=== PATIENT | male | born 1950 | race African-American/Black ===

== ENCOUNTER 2025-07-24 10:34 | Inpatient (IN) | payer MEDICARE, SELFPAY ==
[2025-07-24] VITALS (28 sets, daily range): BP systolic 108–164; BP diastolic 61–85; PULSE 65–87; RESP 12–35; TEMP 36.8; O2SAT 57–100; BMI 30.5
--- NOTE | 2025-07-24 10:42 | DI.CT.S_ITS ---
PROCEDURE: CT ANGIO HEAD AND NECK INDICATIONS: Altered mental status TECHNIQUE: After the administration of intravenous contrast, 1 mm thick sections acquired from the aortic arch through the [place] [employer]. 3-dimensional bngswrj-ykedokoyt-yvloowclmf (MIP) and/or volume rendering reformats were acquired of the central intracranial vasculature and neck separately. For radiation dose reduction, the following was used: automated exposure control, adjustment of mA and/or kV according to patient size. COMPARISON: [facility], CT, CT HEAD/BRAIN WO CON, 07/24/2025, 11:25. FINDINGS: Image quality: Image quality degraded by patient motion artifact. Cerebral CT Angiogram: Internal carotid arteries: No acute findings. Intracranial ICA are patent with no significant stenosis. No occlusion. No aneurysm. Anterior cerebral arteries: Unremarkable. No significant stenosis. No occlusion. No aneurysm. Middle cerebral arteries: Unremarkable. No significant stenosis. No occlusion. No aneurysm. Posterior cerebral arteries: Unremarkable. No significant stenosis. No occlusion. No aneurysm. Basilar artery: Unremarkable. No significant stenosis. No occlusion. No aneurysm. Vertebral arteries: Unremarkable as visualized. Dural venous sinuses: Unremarkable given phase of enhancement. Other: Arterial phase appearance of the brain parenchyma is unremarkable. Neck CT Angiogram: Internal carotid arteries: Mild soft atherosclerotic plaque in the origins of the bilateral internal carotid arteries which causes mild less than 50% stenosis of the vessels. No significant stenosis. No dissection or occlusion. Common carotid arteries: Unremarkable. No significant stenosis. No dissection or occlusion. External carotid arteries: Unremarkable. No occlusion. Vertebral arteries: Unremarkable. No significant stenosis. No dissection or occlusion. Aortic Arch and Mediastinum: Partially visualized aortic arch unremarkable without evidence of aneurysm. Origins of the great vessels unremarkable. Other: Arterial phase soft tissues of the neck and chest are unremarkable. Spine degenerative disc disease and facet arthropathy. IMPRESSION: No large vessel occlusion, significant vascular stenosis, vascular dissection or aneurysm. Any quantitative measurements of stenosis were performed using NASCET criteria. Dictated by: Madelaine Gutierrez MD, PhD on 07/24/2025 at 11:37 Approved by: Madelaine Gutierrez MD, PhD on 07/24/2025 at 11:42
--- NOTE | 2025-07-24 10:45 | ED.AMS ---
HPI - Altered Mental Status General Chief Complaint: Altered Mental Status Stated Complaint: BLE swelling/AMS t-2 weeks Time Seen by Provider: 07/24/25 10:34 Source: patient and EMS Mode of arrival: EMS History of Present Illness HPI narrative: Patient brought in by ambulance from home. Blood sugar 102. Patient according to has had rapid decline of the past 2 weeks with mental status cognition and mobility. Has had bilateral leg swelling. Has not been up and walking very much. Home health nurse was at the facility/home today. She did provide a quick assessment sheet a patient's cognition unable to draw a clock, awake alert oriented to name and date of only. No fall or injury. Patient denies any pain at this time. There is strong smell odor of urine. Patient denies daily alcohol use. No drug use. He denies any pain at this time. No headache chest pain abdominal pain back pain. Related Data Allergies Allergy/AdvReac Type Severity Reaction Status Date / Time No Known Drug Allergies Allergy Verified 07/24/25 10:42 Review of Systems Review of Systems Narrative: GENERAL: Negative chills, fatigue, malaise, fever, sweats. HEENT: Negative sinus pain, ear pain, sore throat RESPIRATORY: Negative dyspnea, cough CARDIOVASCULAR: Negative chest pain, palpitations GASTROINTESTINAL: Negative vomiting, nausea, abdominal pain : Negative dysuria, frequency, hematuria MUSCULOSKELETAL: Negative muscle or bony pain SKIN: Negative rash, skin lesions NEUROLOGIC: Negative weakness, numbness Psychiatric: Positive confusion, negative auditory or visual hallucinations ROS Unobtainable: All systems reviewed & are unremarkable except as noted in HPI and below Patient History Social History household members: spouse Smoking Status: Never smoker Smoking Status: Never smoker Exam Narrative Exam Narrative: GENERAL: in no distress, not toxic not dyspneic HEAD: Normocephalic. EYES: Pupils equal round ENT: Mucous membranes moist. NECK: Trachea midline. CARDIOVASCULAR: Regular rate and rhythm RESPIRATORY: Clear to auscultation. Breath sounds equal bilaterally. No wheezes, rales, or rhonchi. GASTROINTESTINAL: Abdomen soft, non-tender BACK: No flank tenderness. EXTREMITIES: No gross deformities. NEURO: AOx1. Clear speech SKIN: Warm and dry PSYCH: Not anxious, is cooperative Initial Vital Signs Initial Vital Signs: Vital Signs Temperature 98.2 F 07/24/25 10:42 Pulse Rate 87 07/24/25 10:42 Respiratory Rate 17 07/24/25 10:42 Blood Pressure 137/85 07/24/25 10:42 Pulse Oximetry 96 07/24/25 10:42 Oxygen Delivery Method Room Air 07/24/25 10:42 Course Orders Ordered: Acetaminophen (Acetaminophen 325 Mg Tablet) 650 mg PO Q6H PRN PRN Reason: Fever/Mild Pain (1-3) Al Hydrox/Mg Hydrox/Simethicone (Mag Hydrox/Alum/Simeth 30 Ml Udc) 30 ml PO Q6HR PRN PRN Reason: Dyspepsia Heparin Sodium (Porcine) (Heparin 5,000 Unit/Ml Vial) 5,000 unit SUBCUT BID [facility] Last Admin: 07/24/25 21:23 Dose: 5,000 unit Documented By: STEPHAN Sodium Chloride (Normal Saline 0.9%) 1,000 mls @ 100 mls/hr IV CONT [facility] Last Admin: 07/24/25 21:23 Dose: 100 mls/hr Documented By: STEPHAN Ceftriaxone Sodium 2,000 mg/ (Sodium Chloride) 100 mls @ 200 mls/hr IV Q24H [facility] Last Infusion: 07/24/25 22:33 Dose: Infused Documented By: Admin: 07/24/25 21:23 Dose: 200 mls/hr Documented By: STEPHAN Vancomycin HCl (Vancomycin) 1,000 mg in 200 mls @ 200 mls/hr IV Q12H [facility] Magnesium Hydroxide (Magnesium Hydroxide 30 Ml Udc) 30 ml PO DAILY PRN PRN Reason: Constipation Naloxone HCl (Naloxone 0.4 Mg/Ml Vial) 0.2 mg IV Q2MIN PRN PRN Reason: Opiate Reversal Ondansetron HCl (Ondansetron 4 Mg/2 Ml Inj) 4 mg IV Q8HR PRN PRN Reason: Nausea And Vomiting Sennosides (Sennosides 8.6 Mg Tablet) 17.2 mg PO BEDTIME [facility] Vancomycin HCl (Vancomycin Per Pharmacy) 1 request MISC NOW PRN PRN Reason: Infected sacral wounds Vancomycin HCl (Vancomycin Trough) 1 request [facility] [place] [address] [facility] Stop: 07/26/25 09:31 Discontinued Medications Sodium Chloride (Normal Saline 0.9%) 1,000 mls @ 1,000 mls/hr IV BOLUS ONE Stop: 07/24/25 11:47 Last Infusion: 07/24/25 17:13 Dose: Infused Documented By: Admin: 07/24/25 11:21 Dose: 1,000 mls/hr Documented By: LILLY Sodium Chloride (Normal Saline 0.9%) 1,000 mls @ 1,000 mls/hr IV BOLUS ONE Stop: 07/24/25 15:04 Last Infusion: 07/24/25 20:20 Dose: Infused Documented By: Admin: 07/24/25 18:13 Dose: 1,000 mls/hr Documented By: LILLY Vancomycin HCl/Dextrose (Vancomycin) 1,750 mg in 350 mls @ 175 mls/hr IV NOW ONE Stop: 07/24/25 23:14 Last Admin: 07/25/25 07:27 Dose: Not Given Documented By: LAUREN Vancomycin HCl/Dextrose (Vancomycin) 1,750 mg in 350 mls @ 175 mls/hr IV NOW ONE Stop: 07/25/25 00:14 Last Infusion: 07/25/25 01:04 Dose: Infused Documented By: Admin: 07/24/25 22:33 Dose: 175 mls/hr Documented By: STEPHAN Vital Signs Vital signs: Vital Signs - 8 hr 07/24/25 10:42 Temperature 98.2 F Pulse Rate 87 Respiratory Rate 17 Blood Pressure 137/85 Pulse Oximetry 96 Oxygen Delivery Method Room Air MDM - Altered Mental Status Lab Data 07/25/25 03:50 07/25/25 06:20 Labs: Lab Results 07/24/25 07/24/25 07/24/25 Range/Units 11:18 13:09 16:25 WBC 5.4 (4.5-11.0) X10^3/uL RBC 3.75 L (4.5-5.9) X10^6/uL Hgb 10.4 L (13.5-17.5) g/dL Hct 31.5 L (41-53) % MCV 84.0 (80-100) fL MCH 27.8 (26-34) PG MCHC 33.1 (30-36) % RDW 16.1 H (11.6-14.8) % Plt Count 282 (150-400) X10^3/uL Neut % (Auto) 41.6 L (50-75) % Lymph % (Auto) 35.4 (25-40) % [place] % (Auto) 14.9 H (3-14) % Eos % (Auto) 5.4 H (2-4) % Baso % (Auto) 2.7 H (0-2) % Neut # (Auto) 2300 (2635-8804) /uL Lymph # (Auto) 1900 (1697-5230) /uL [place] # (Auto) 800 (0-900) /uL Eos # (Auto) 300 (0-450) /uL Baso # (Auto) 100 (0-100) /uL PT 11.3 (9.4-12.5) SECONDS INR 1.0 (0.9-1.3) APTT 32 (25.1-36.5) SECONDS Sodium 136 L (137-145) mmol/L Potassium 4.9 (3.4-5.1) mmol/L Chloride 104 (98-107) mmol/L Carbon Dioxide 24 (22-32) mmol/L BUN 20 (9-20) mg/dL Creatinine 1.02 (0.66-1.25) mg/dL Estimated GFR > 60 (>60) mL/min BUN/Creatinine Ratio 19.6 (6-22) Glucose 104 H (70-99) mg/dL Lactate 2.4 H 1.7 (0.7-2.1) mmol/L Calcium 9.5 (8.4-10.2) mg/dL Total Bilirubin 0.4 (0.2-1.3) mg/dL AST 31 (17-59) IU/L ALT 15 (<50) IU/L Alkaline Phosphatase 58 (38-126) U/L Ammonia 9 (9-30) umol/L Total Creatine Kinase 266 H (55-170) U/L Troponin I < 0.012 (0.01-0.034) ng/mL Total Protein 7.6 (6.3-8.2) g/dL Albumin 4.0 (3.5-5.0) g/dL Globulin 3.6 (1.7-4.1) g/dL Albumin/Globulin Ratio 1.1 (1.0-2.8) Procalcitonin 0.046 (<0.5) ng/mL TSH 55.4 H (0.47-4.68) uIU/mL Urine Color Yellow Urine Appearance Clear Urine pH 6.0 (4.5-8.0) Ur Specific [place] 1.015 (1.000-1.035) Urine Protein Negative (Negative) Urine Glucose (UA) Negative (Negative) g/dL Urine Ketones Negative (NEGATIVE) Urine Occult Blood Negative (Negative) Urine Nitrate Negative (Negative) Urine Bilirubin Negative (NEGATIVE) Urine Urobilinogen 1.0 (0.2) E.U./dL Ur Leukocyte Esterase Negative (NEGATIVE) Urine RBC None seen (0-5/HPF) Urine WBC None seen (0-5/HPF) Ur Squamous Epith Cells 0-1 /hpf (0-5/HPF) Urine Bacteria None seen (None) Ur Culture Indicated? Cult not indicated Vol Urine Centrifuged 10ml (spun) Salicylates < 1.0 (<20) mg/dL U Opiates 300ng/mL cut Negative (Negative) Ur Oxycodone Screen Negative (Negative) Urine Methadone Screen Negative (Negative) Acetaminophen < 10 (10-30) ug/mL Ur Barbiturates Screen Negative (Negative) U Tricyclic Antidepress Negative (Negative) Ur Phencyclidine Scrn Negative (Negative) Ur Amphetamines Screen Negative (Negative) U Methamphetamines Scrn Negative (Negative) Ur MDMA Scrn (Ecstasy) Negative (Negative) U Benzodiazepines Scrn Negative (Negative) Urine Cocaine Screen Negative (Negative) U Marijuana (THC) Screen Positive H (Negative) Urine Specific [place] (Normal) Ethyl Alcohol < 10 (<10) mg/dL Ur Creatinine (Normal) 07/24/ Range/Units 16:25 WBC (4.5-11.0) X10^3/uL RBC (4.5-5.9) X10^6/uL Hgb (13.5-17.5) g/dL Hct (41-53) % MCV (80-100) fL MCH (26-34) PG MCHC (30-36) % RDW (11.6-14.8) % Plt Count (150-400) X10^3/uL Neut % (Auto) (50-75) % Lymph % (Auto) (25-40) % [place] % (Auto) (3-14) % Eos % (Auto) (2-4) % Baso % (Auto) (0-2) % Neut # (Auto) (7834-8467) /uL Lymph # (Auto) (3741-4030) /uL [place] # (Auto) (0-900) /uL Eos # (Auto) (0-450) /uL Baso # (Auto) (0-100) /uL PT (9.4-12.5) SECONDS INR (0.9-1.3) APTT (25.1-36.5) SECONDS Sodium (137-145) mmol/L Potassium (3.4-5.1) mmol/L Chloride (98-107) mmol/L Carbon Dioxide (22-32) mmol/L BUN (9-20) mg/dL Creatinine (0.66-1.25) mg/dL Estimated GFR (>60) mL/min BUN/Creatinine Ratio (6-22) Glucose (70-99) mg/dL Lactate (0.7-2.1) mmol/L Calcium (8.4-10.2) mg/dL Total Bilirubin (0.2-1.3) mg/dL AST (17-59) IU/L ALT (<50) IU/L Alkaline Phosphatase (38-126) U/L Ammonia (9-30) umol/L Total Creatine Kinase (55-170) U/L Troponin I (0.01-0.034) ng/mL Total Protein (6.3-8.2) g/dL Albumin (3.5-5.0) g/dL Globulin (1.7-4.1) g/dL Albumin/Globulin Ratio (1.0-2.8) Procalcitonin (<0.5) ng/mL TSH (0.47-4.68) uIU/mL Urine Color Urine Appearance Urine pH Normal (4.5-8.0) Ur Specific [place] (1.000-1.035) Urine Protein (Negative) Urine Glucose (UA) (Negative) g/dL Urine Ketones (NEGATIVE) Urine Occult Blood (Negative) Urine Nitrate (Negative) Urine Bilirubin (NEGATIVE) Urine Urobilinogen (0.2) E.U./dL Ur Leukocyte Esterase (NEGATIVE) Urine RBC (0-5/HPF) Urine WBC (0-5/HPF) Ur Squamous Epith Cells (0-5/HPF) Urine Bacteria (None) Ur Culture Indicated? Vol Urine Centrifuged Salicylates (<20) mg/dL U Opiates 300ng/mL cut (Negative) Ur Oxycodone Screen (Negative) Urine Methadone Screen (Negative) Acetaminophen (10-30) ug/mL Ur Barbiturates Screen (Negative) U Tricyclic Antidepress (Negative) Ur Phencyclidine Scrn (Negative) Ur Amphetamines Screen (Negative) U Methamphetamines Scrn (Negative) Ur MDMA Scrn (Ecstasy) (Negative) U Benzodiazepines Scrn (Negative) Urine Cocaine Screen (Negative) U Marijuana (THC) Screen (Negative) Urine Specific [place] Normal (Normal) Ethyl Alcohol (<10) mg/dL Ur Creatinine Normal (Normal) Imaging Data MRI brain: Radiologist's Impression: [address] [address] Magnetic Resonance Report Signed Patient: Bebeto Orona MR#: [id number] : 1950 Acct:[id number] Age/Sex: 74 / M Date of Service: 07/24/25 Loc: ED Accession Number: [id number] Procedure: MR head/brain wo con Ordering Provider: Zacarias Hunt MD PROCEDURE: MR HEAD/BRAIN WO CON INDICATIONS: Altered mental status/possible stroke TECHNIQUE: Non-contrast axial T1 spin echo, axial T2 fast spin echo, sagittal and axial FLAIR, coronal T2 fast spin echo, axial gradient echo, axial diffusion and ADC through the brain. COMPARISON: None. FINDINGS: Image quality: Excellent. CSF spaces: Ventricles appear symmetric in size and shape. Basal cisterns are patent. No extra-axial fluid collections. Brain: No intracranial bleeds or mass effects. There is cerebral volume loss for age. There are periventricular and deep white matter chronic small vessel ischemic changes. Brainstem appears normal. Diffusion-weighted images show no acute infarct. No chronic ischemic insults. Normal intravascular flow voids are present. Skull and face: Calvarial bone marrow is normal in signal. Orbits are normal. Sinuses: Complete opacification of the right maxillary sinus with widening of the ostiomeatal complex and extension into the sinus cavity. Complete opacification of the right sphenoid sinus. The mastoid sinuses are clear. IMPRESSION: No acute or subacute infarct. No acute intracranial abnormalities. Age-related global volume loss and moderate chronic microvascular ischemic changes. Again seen complete opacification of the right maxillary and sphenoid sinus with an expansile process into the right nasal cavity, non urgent ENT consultation is recommended. Dictated by: Junior Gutierrez M.D. on 07/24/2025 at 15:09 Approved by: Junior Gutierrez M.D. on 07/24/2025 at 15:14 CT scan - head: Radiologist's Impression: [address] [address] [address] Scan Report Signed Patient: Bebeto Orona MR#: [id number] : 1950 Acct:[id number] Age/Sex: 74 / M Date of Service: 07/24/25 Loc: ED Accession Number: [id number] Procedure: CT head/brain wo con Ordering Provider: Zacarias Hunt MD PROCEDURE: CT HEAD/BRAIN WO CON INDICATIONS: Altered mental status TECHNIQUE: Noncontrast 4.5 mm thick angled axial sections acquired from the foramen magnum to the vertex, with coronal and sagittal reformats. For radiation dose reduction, the following was used: automated exposure control, adjustment of mA and/or kV according to patient size. COMPARISON: None. FINDINGS: Image quality: Diagnostic. CSF spaces: Basal cisterns are patent. No extra-axial fluid collections. The ventricles are symmetric in size and shape. Brain: No intracranial bleeds or mass effect. There is cerebral volume loss, with resultant ventricular and sulcal prominence. There are moderate periventricular and deep white matter chronic small vessel ischemic changes. There is intracranial internal carotid artery atherosclerosis. Skull and face: Calvarium and visualized facial bones appear intact, without suspicious lesions. Sinuses: Complete opacification of the right maxillary sinus with extension of soft tissue beyond the confines of the medial wall of the sinus into the right nasal fossa. Complete opacification of the right sphenoid sinus and partial right ethmoid opacification. IMPRESSION: No acute intracranial pathology. Complete opacification of the right maxillary sinus and right sphenoid sinus. Expansile process into the right nasal passage. Consider chronic sinus disease. Consider mucocele. Maxillary sinus neoplasm not excluded. Recommend nonemergent ENT consultation. Dictated by: Miguel Calixto M.D. on 07/24/2025 at 12:10 Approved by: Miguel Calixto M.D. on 07/24/2025 at 12:13 CTA - brain/neck: Radiologist's Impression: [address] [address] [address] Scan Report Signed Patient: Bebeto Orona MR#: [id number] : 1950 Acct:[id number] Age/Sex: 74 / M Date of Service: 07/24/25 Loc: ED Accession Number: [id number] Procedure: CT angio head and neck Ordering Provider: Zacarias Hunt MD PROCEDURE: CT ANGIO HEAD AND NECK INDICATIONS: Altered mental status TECHNIQUE: After the administration of intravenous contrast, 1 mm thick sections acquired from the aortic arch through the [place] [employer]. 3-dimensional meydkae-thhnfzpqe-yawnqgkobj (MIP) and/or volume rendering reformats were acquired of the central intracranial vasculature and neck separately. For radiation dose reduction, the following was used: automated exposure control, adjustment of mA and/or kV according to patient size. COMPARISON: [facility], CT, CT HEAD/BRAIN WO CON, 07/24/2025, 11:25. FINDINGS: Image quality: Image quality degraded by patient motion artifact. Cerebral CT Angiogram: Internal carotid arteries: No acute findings. Intracranial ICA are patent with no significant stenosis. No occlusion. No aneurysm. Anterior cerebral arteries: Unremarkable. No significant stenosis. No occlusion. No aneurysm. Middle cerebral arteries: Unremarkable. No significant stenosis. No occlusion. No aneurysm. Posterior cerebral arteries: Unremarkable. No significant stenosis. No occlusion. No aneurysm. Basilar artery: Unremarkable. No significant stenosis. No occlusion. No aneurysm. Vertebral arteries: Unremarkable as visualized. Dural venous sinuses: Unremarkable given phase of enhancement. Other: Arterial phase appearance of the brain parenchyma is unremarkable. Neck CT Angiogram: Internal carotid arteries: Mild soft atherosclerotic plaque in the origins of the bilateral internal carotid arteries which causes mild less than 50% stenosis of the vessels. No significant stenosis. No dissection or occlusion. Common carotid arteries: Unremarkable. No significant stenosis. No dissection or occlusion. External carotid arteries: Unremarkable. No occlusion. Vertebral arteries: Unremarkable. No significant stenosis. No dissection or occlusion. Aortic Arch and Mediastinum: Partially visualized aortic arch unremarkable without evidence of aneurysm. Origins of the great vessels unremarkable. Other: Arterial phase soft tissues of the neck and chest are unremarkable. Spine degenerative disc disease and facet arthropathy. IMPRESSION: No large vessel occlusion, significant vascular stenosis, vascular dissection or aneurysm. Any quantitative measurements of stenosis were performed using NASCET criteria. Dictated by: Madelaine Gutierrez MD, PhD on 07/24/2025 at 11:37 Approved by: Madelaine Gutierrez MD, PhD on 07/24/2025 at 11:42 US - DVT: Radiologist's Impression: [address] [address] Ultrasound Report Signed Patient: Bebeto Orona MR#: [id number] : 1950 Acct:[id number] Age/Sex: 74 / M Date of Service: 07/24/25 Loc: ED Accession Number: [id number] Procedure: US periph venous low extrem bi Ordering Provider: Zacarias Hunt MD PROCEDURE: US PERIPH VENOUS LOW EXTREM BI INDICATIONS: Leg swelling TECHNIQUE: Real-time imaging, as well as color and pulse Doppler interrogation, were performed of the deep veins of both legs from the inguinal ligament to the popliteal fossa, with documentation of the visualized calf veins. COMPARISON: None. FINDINGS: Right: The common femoral, femoral, popliteal, and the visualized calf veins are normally compressible, and free of intraluminal thrombus. Color and pulse Doppler demonstrate normal phasic intravascular flow. There is normal augmentation response to distal compression maneuver. Left: The common femoral, femoral, popliteal, and the visualized calf veins are normally compressible, and free of intraluminal thrombus. Color and pulse Doppler demonstrate normal phasic intravascular flow. There is normal augmentation response to distal compression maneuver. Peroneal veins are not well seen bilaterally due to edema. IMPRESSION: No findings of deep venous thrombosis in either lower extremity. Dictated by: Junior Gutierrez M.D. on 07/24/2025 at 13:21 Approved by: Junior Gutierrez M.D. on 07/24/2025 at 13:23 Chest x-ray: Radiologist's Impression: [address] [address] XRay Report Signed Patient: Bebeto Orona MR#: [id number] : 1950 Acct:[id number] Age/Sex: 74 / M Date of Service: 07/24/25 Loc: ED Accession Number: [id number] Procedure: XR chest 1V Ordering Provider: Zacarias Hunt MD PROCEDURE: XR CHEST 1V INDICATIONS: Cough TECHNIQUE: One view of the chest was acquired. COMPARISON: None. FINDINGS: Surgical changes and devices: None. Lungs and pleura: Lungs are clear. No pleural effusions or pneumothorax. Mediastinum: Mediastinal contours appear normal. Heart size is normal. Bones and chest wall: No suspicious bony lesions. Overlying soft tissues appear unremarkable. IMPRESSION: No acute cardiopulmonary abnormality is seen. Dictated by: Minh Thomason M.D. on 07/24/2025 at 11:24 Approved by: Minh Thomason M.D. on 07/24/2025 at 11:24 [facility] Narrative Medical decision making narrative: Patient brought in by ambulance from home. Blood sugar 102. Patient according to has had rapid decline of the past 2 weeks with mental status cognition and mobility. Has had bilateral leg swelling. Has not been up and walking very much. Home health nurse was at the facility/home today. She did provide a quick assessment sheet a patient's cognition unable to draw a clock, awake alert oriented to name and date of only. No fall or injury. Patient denies any pain at this time. There is strong smell odor of urine. Patient denies daily alcohol use. No drug use. He denies any pain at this time. No headache chest pain abdominal pain back pain MDM After history and exam, CBC CMP drug screen alcohol level urinalysis CT head CT angio head and neck normal saline Differential considered: Includes but not limited to UTI dehydration dependent leg edema due to lack of mobility/walking, stroke TIA failure to thrive, STEMI non-STEMI Medical records reviewed: No recent visit for this complaint Lab Test results independently reviewed as above. Pertinent findings: WBC 5.4 hemoglobin 10.4 INR 1.0 sodium 136 potassium 4.9 BUN 19.6 glucose 104 lactic acid 2.4, drug screen positive marijuana, urinalysis negative nitrite negative leukocyte Independently reviewed EKG normal sinus rhythm rate [address]-elevation or depression Imaging studies independently reviewed: Chest x-ray no acute finding. CT head CT angio head and neck no acute finding, MRI brain no acute finding Consultations: 5:00 p.m.. I spoke with [facility] social security specialist. Physical therapy has seen patient in is a minimum 1-2 person assist. Not safe for home. Patient will need OT therapy as well. 5:55 p.m.. I spoke with hospitalist, dr flores, will admit Re-evaluations: 5:45 p.m.. Updated patient and results and they do agree admission as he is not safe to go home. Discussion: IV contrast used for CT imaging. Appropriate for admission. Patient will require further workup evaluation for altered mental status. Diagnosis: Altered mental status Discharge Plan Departure Patient Disposition: Admitted as Observation Clinical Impression: Altered mental status Qualifiers: Altered mental status type: unspecified Qualified Code(s): R41.82 - Altered mental status, unspecified Admit Date/Time: 07/24/25 17:51 Admit Provider: Gian Flores
[2025-07-24] MEDS: SODIUM CHLORIDE 0.9% 1,000 ML 1000 ML IV ×2 (11:21→18:13)
[2025-07-24 11:27] LABS: Add Manual Diff / Slide Review NO; Hematocrit 31.5 % (41-53); Hemoglobin 10.4 g/dL (13.5-17.5); Lymphocytes Absolute Auto 1900 /uL (1100-4500); Mean Corpuscular HGB Conc 33.1 % (30-36); Mean Corpuscular Hemoglobin 27.8 PG (26-34); Mean Corpuscular Volume 84.0 fL (80-100); Platelet Count 282 X10^3/uL (150-400)
[2025-07-24 11:38] LABS: INR 1.0 (0.9-1.3); Prothrombin Time 11.3 SECONDS (9.4-12.5)
[2025-07-24 11:41] LABS: PTT Partial Thromboplastin Tim 32 SECONDS (25.1-36.5)
[2025-07-24 11:42] LABS: Acetaminophen < 10 ug/mL (10-30); Creatine Kinase 266 U/L (55-170); Ethanol (ETOH) < 10 mg/dL (<10); Salicylate < 1.0 mg/dL (<20)
[2025-07-24 11:43] LABS: Alanine Aminotransferase 15 IU/L (<50); Albumin 4.0 g/dL (3.5-5.0); Albumin Globulin Ratio 1.1 (1.0-2.8); Alkaline Phosphatase 58 U/L (38-126); Ammonia (NH3) 9 umol/L (9-30); Blood Urea Nitrogen 20 mg/dL (9-20); Calcium 9.5 mg/dL (8.4-10.2); Carbon Dioxide 24 mmol/L (22-32); Chloride 104 mmol/L (98-107); Estimated Glomerular Filt Rate > 60 mL/min (>60); Globulin 3.6 g/dL (1.7-4.1); Glucose 104 mg/dL (70-99); HEMOLYSIS < 15 (0-50); Lactate (Lactic Acid) 2.4 mmol/L (0.7-2.1); Potassium 4.9 mmol/L (3.4-5.1); Sodium 136 mmol/L (137-145); Total Protein 7.6 g/dL (6.3-8.2)
[2025-07-24 11:56] LABS: Troponin I < 0.012 ng/mL (0.01-0.034)
[2025-07-24 11:58] LABS: Procalcitonin 0.046 ng/mL (<0.5)
--- NOTE | 2025-07-24 11:59 | EKG_ITS ---
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
--- NOTE | 2025-07-24 12:01 | DI.US.S_ITS ---
PROCEDURE: US PERIPH VENOUS LOW EXTREM BI INDICATIONS: Leg swelling TECHNIQUE: Real-time imaging, as well as color and pulse Doppler interrogation, were performed of the deep veins of both legs from the inguinal ligament to the popliteal fossa, with documentation of the visualized calf veins. COMPARISON: None. FINDINGS: Right: The common femoral, femoral, popliteal, and the visualized calf veins are normally compressible, and free of intraluminal thrombus. Color and pulse Doppler demonstrate normal phasic intravascular flow. There is normal augmentation response to distal compression maneuver. Left: The common femoral, femoral, popliteal, and the visualized calf veins are normally compressible, and free of intraluminal thrombus. Color and pulse Doppler demonstrate normal phasic intravascular flow. There is normal augmentation response to distal compression maneuver. Peroneal veins are not well seen bilaterally due to edema. IMPRESSION: No findings of deep venous thrombosis in either lower extremity. Dictated by: Junior Gutierrez M.D. on 07/24/2025 at 13:21 Approved by: Junior Gutierrez M.D. on 07/24/2025 at 13:23
--- NOTE | 2025-07-24 12:02 | DI.MRI.S_ITS ---
PROCEDURE: MR HEAD/BRAIN WO CON INDICATIONS: Altered mental status/possible stroke TECHNIQUE: Non-contrast axial T1 spin echo, axial T2 fast spin echo, sagittal and axial FLAIR, coronal T2 fast spin echo, axial gradient echo, axial diffusion and ADC through the brain. COMPARISON: None. FINDINGS: Image quality: Excellent. CSF spaces: Ventricles appear symmetric in size and shape. Basal cisterns are patent. No extra-axial fluid collections. Brain: No intracranial bleeds or mass effects. There is cerebral volume loss for age. There are periventricular and deep white matter chronic small vessel ischemic changes. Brainstem appears normal. Diffusion-weighted images show no acute infarct. No chronic ischemic insults. Normal intravascular flow voids are present. Skull and face: Calvarial bone marrow is normal in signal. Orbits are normal. Sinuses: Complete opacification of the right maxillary sinus with widening of the ostiomeatal complex and extension into the sinus cavity. Complete opacification of the right sphenoid sinus. The mastoid sinuses are clear. IMPRESSION: No acute or subacute infarct. No acute intracranial abnormalities. Age-related global volume loss and moderate chronic microvascular ischemic changes. Again seen complete opacification of the right maxillary and sphenoid sinus with an expansile process into the right nasal cavity, non urgent ENT consultation is recommended. Dictated by: Junior Gutierrez M.D. on 07/24/2025 at 15:09 Approved by: Junior Gutierrez M.D. on 07/24/2025 at 15:14
[2025-07-24 12:44] LABS: Thyroid Stimulating Hormone 55.4 uIU/mL (0.47-4.68)
[2025-07-24 13:00] LABS: Reflexed Lactate in 2 Hours Y
[2025-07-24 13:27] LABS: Lactate 2HR (Lactic Acid Rflx) 1.7 mmol/L (0.7-2.1)
--- NOTE | 2025-07-24 15:05 | PT.IIE ---
Physical Therapy Inpatient Evaluation/Re-Eval M1 PT/OT-IP Prior Functional Status Start: 07/24/25 16:35 Freq: Status: Active Protocol: Document 07/24/25 15:05 AB (Rec: 07/24/25 16:52 [id number]) Medical Review Prior Functional Status Medical History Yes Reviewed Communication able to make needs known; slow to respond to questions and instructions Mobility and Gait pt stated that he was modified independent with all mobilities and ambulation using a SPC; pt stated that he has not seen a doctor for years spouse stated that pt was modified independent with toileting but has not had a shower for years; stated that pt has not been out of the house for 6 years; able to ambulate inside their RV using a SPC but uses the counters for support when he uses the toilet. pt had 2 falls for the last 4 weeks and last fall was 2 weeks ago and since that fall; pt was not able to ambulate and has been incontinent. Social History Household Members spouse Living Arrangements RV Number of Floors ( One Floor Floors) Number of Stairs To 6 steps B rails to enter Enter/Railing? Home Environment Standard Height Toilet,Walk in Shower Home Equipment Straight Cane,Hand Held Shower M2 PT-IP Current Condition Start: 07/24/25 16:35 Freq: Status: Active Protocol: Document 07/24/25 15:05 AB (Rec: 07/24/25 16:52 [id number]) Physical Therapy Current Condition Current Condition Evaluation Date 07/24/25 Treatment Diagnosis altered mental status; difficulty in walking Onset Date 07/24/25 M3 PT-IP Subjective Start: 07/24/25 16:35 Freq: Status: Active Protocol: Document 07/24/25 15:05 AB (Rec: 07/24/25 16:52 [id number]) Subjective Physical Therapy Visit Type Type Initial Evaluation Visit Start Time 15:05 Visit Stop Time 16:05 Number of CHERRY CUTTER Visits 0 Physical Therapy Visit Comments Patient Comments agreed to do PT Therapy Pain Assessment Pain Present Pain Present Denied Pain M4 PT-IP Mobility and Gait Start: 07/24/25 16:35 Freq: Status: Active Protocol: Document 07/24/25 15:05 AB (Rec: 07/24/25 16:52 [id number]) PT-Bed Mobility Assessment Supine to Sit Supine to Sit Maximum Assistance Sit to Supine Sit to Supine Maximum Assistance,1 Person Assistance,2 Person Assistance PT-Transfer Assessment Sit to and From Stand Sit to and from Maximum Assistance,1 Person Assistance,Use of Upper Stand Extremities Equipment Transfer Assistive Gait Belt,Front Wheeled Walker Device Orthotic/Prosthetic No Devices or Brace: Comments Mobility Comments pt seen in the ED. pt in bed and agreed to do PT. obtained PLOF and home set up. pt's spouse arrived and clarified home set up. pt with decrease memory. BP: 134/82 O2 sat 97% and OK: 94. completed supine to sit max A and max cues. able to sit on EOB CGA. sit to stand max A and max cues. instructed to use FWW for support. pt needing one step cues with all tasks. pt was able to take side steps towards HOB max A and max cues using FWW. pt rested and agreed to ambulate more in room. completed sit to stand max A and ambulated ~ 5 ft in room using FWW max A and max cues. (+) tremors /shakiness on BUE. presents with very unsteady gait with narrow VALENTINE. pt sat back on EOB. completed sit to supine max Ax 1-2 and max cues. positioned pt in bed. call light and table placed next to pt. informed pt and spouse regarding SNF recommendation and both agreed. informed case work aide. Gait Assessment Gait Gait Assistance Maximum Assistance,1 Person Assist Required: Distance (Feet) 5 Able to Maintain Yes Weight Bearing Status During Gait Assistive Devices Assistive Device Gait Belt,Front Wheeled Walker Orthotic/Prosthetic No Devices or Brace: Gait Deviations General Gait Pattern Ataxic,Decreased Stride Length,Decreased Feet Clearance ,Step-to Gait Factors Limiting Gait Function Factors Limiting Decreased Activity Tolerance,Decreased Strength, Gait Function Difficulty Following Directions,Poor Balance,Poor Safety Awareness PT-Balance Assessment Sitting Balance and Reactions Static Sitting Good Balance Ability Dynamic Sitting Fair Balance Ability Standing Balance and Reactions Static Standing Poor Balance Ability Dynamic Standing Poor Balance Ability Device Used FWW M5 PT-IP Objective Assessments Start: 07/24/25 16:35 Freq: Status: Active Protocol: Document 07/24/25 15:05 AB (Rec: 07/24/25 16:52 AB [id number]) Orientation Orientation/Cognition Level of Alertness Confusional State Orientation Name,Situation Language Function No Deficits Noted Ability Safety Awareness Decreased Safety Awareness Memory Description Short Term Impaired,Correction Impaired Gross Range of Motion Lower Extremity ROM Assessment Within Functional Limits Strength Lower Extremity Strength Assessment Bilaterally Impaired Hip 3-/5 Knee 3+/5 Muscle Tone Muscle Tone WNL Yes M6 PT-IP Treatment Start: 07/24/25 16:35 Freq: Status: Active Protocol: Document 07/24/25 15:05 AB (Rec: 07/24/25 16:52 AB [id number]) Physical Therapy Treatment Education Education Provided Safety M7 PT-IP Assessment and Plan Start: 07/24/25 16:35 Freq: Status: Active Protocol: Document 07/24/25 15:05 AB (Rec: 07/24/25 16:52 AB [id number]) PT Summary Assessment and Plan Potential Rehabilitation Fair Potential Status of Condition Evolving at Evaluation Summary Impairments Pain,ROM,Strength,Balance,Coordination,Sensation,Tone, Cognition,Bed Mobility,Transfers,Gait,Activity Tolerance Assessment Summary pt seen in the ED. pt is a 74 y/o M who presented to the ED due to altered mental status. pt with 2 falls for the last 4 weeks and has been declining in mobility with the last fall ~ 2 weeks ago and pt unable to ambulate since then per spouse. pt requiring max A x 1 -2 for bed mobility, max A for transfers and ambulation using FWW and max cues with all tasks. pt with decrease cognitive level affecting following directions and safety awareness. pt will benefit from SNF rehab to improve overall strength and function. Goals Bed Mobility Goal Minimal Assistance Transfer Goal Minimal Assistance,Front Wheeled Walker Gait Goal Minimal Assistance,Front Wheel Walker Gait Distance 25 Other Goals improve bed mobility, transfers, ambulation using FWW ~ 100 ft SBA up/down 6 steps B rails SBA Days to Meet Goals 10 Frequency of Treatment Frequency Of Once a Day Treatment Treatment Plan Physical Therapy Bed Mobility Training,Transfer Training,Gait Training, Treatment Plan Therapeutic Exercise,Balance Retraining,Discharge Planning,Hot or Cold Pack,Neuromuscular Re-ed, Coordination Retraining,Manual Therapy Precautions Other Precautions falls Recommendations To Nursing Amount of Assist 2 Person Assist Needed Discharge Recommendations PT Discharge SNF Rehab Recommendations Transportation Needs Wheelchair/Cabulance at Discharge - PT assist 1
--- NOTE | 2025-07-24 16:23 | CM.IDA ---
Addendum entered by Deyanira Holland 07/24/25 17:06: PAIL BAILER provides patient's spouse with Medicare choice list, lists of caregivers, senior resource guide, transportation resources, DME list and caregiver support resources. Deyanira Holland, [facility] Original Note: Initial DCP Assessment Note/ ED PAIL BAILER Note Patient is 74 y/o male who presents to ED via EMS due to concern for increase in weakness, AMS, increased confusion, bilateral leg swelling, recent GLFs and decline in ambulation in the last two weeks. Patient does not have a PCP, PAIL BAILER scheduled appt for patient with Dr. Chen for 07/31/25 at 1:30pm, patient may not be able to attend appt due to unfolding disposition and plan of care. Patient has [facility] insurance. PAIL BAILER enters room to meet with patient, present in room is patient's spouse. Patient presents as A/O to self, person and date. Patient resides with spouse in [place] in an , it is reported that they have family that reside in [place]. Patient's spouse provides most of the answers to questions during conversation. It is reported that patient has not left their RV in 6 years, it is reported that patient has had two falls in the last month or so and spouse has noticed decline in patient's ability to ambulate and increase in confusion in the last two weeks. It is reported that patient has not showered in two months. Patient's spouse endorses that she manages most of the ADLs regarding cooking cleaning and ensuring that patient is fed. Patient endorses ADLs are a slow process for him, patient's spouse endorses concern for incontinence in recent weeks for patient. At baseline patient could ambulate within the RV using the sides of the RV but he has been unable to do so in the last two weeks. Patient has FWW at home. It is reported that a [facility] contracted through patient's insurance saw patient yesterday for a home assessment and reported concerns for patient's bilateral leg swelling and AMS and recommended patient come to ED. There is concern that patient will not be able to get into a vehicle if needed at this time to get to a PCP appt. PAIL BAILER discusses other transportation options such as BLS and cabulance. PAIL BAILER discusses patient with Onsebastian at PCP clinic regarding patient's need for PCP appt and appt is scheduled, if disposition changes patient will have f/u appt at later date with Dr. Chen. PAIL BAILER discusses HH vs. SNF rehab. Patient's spouse endorses preference for SNF rehab with preference to remain local. PT evaluates patient and recommends SNF rehab, it is reported that patient is a 1-2 person assist, patient presents with some safety concerns following directions and will slow response time. PAIL BAILER contacts [facility] rehab regarding patient and leaves . PAIL BAILER to fax clinicals for review. APS report submitted due to concern for self neglect: Online Report Confirmation Number: [id number]. Plan: Awaiting urine sample results at this time. Patient is pending admission, patient would benefit from further PT eval and OT eval for SLUMS score. [facility] SNF rehab reviewing pt. JANAY Sanford Discharge Planning/Care Management CM Discharge Assessment Start: 07/24/25 16:15 Freq: Status: Active Protocol: Document 07/24/25 16:16 LN (Rec: 07/24/25 16:22 LN [id number]) Discharge Planning Assessment Assigned Discharge JANAY [address] [employer] Insurance [facility] Advance Directives? No Advance Directives No on File History Provided By Patient,Significant Other,Medical Record Has Patient been No admitted in last 30 days? Prior Living RV Arrangements Household Members spouse Type of Relies on Others transportation used prior to admit Comment Patient has not left his RV in 6 years Independent with ADL No 's Is patient alert and No oriented? Needs Assistance Bathing,Grooming,Meal Prep,Toileting,Managing With Medications,Home Chores / Shopping DME Already Rented / FWW / Walker Owned Patient/Family Fdc Facility Preference Comment Preference for SNF rehab, primary choice is [facility], secondary choices are SNF rehabs in [facility]. SNF/HH Preference [facility] Has Agency SNF been Yes contacted
[2025-07-24 17:03] LABS: Appearance Urine UA CLEAR; Bilirubin Urine UA NEGATIVE (NEGATIVE); Color Urine UA YELLOW; Glucose Urine UA NEGATIVE (Negative); Ketones Urine UA NEGATIVE (NEGATIVE); Leukocyte Esterase Urine UA NEGATIVE (NEGATIVE); Nitrite Urine UA NEGATIVE (Negative); Occult Blood Urine UA NEGATIVE (Negative); Protein Urine UA NEGATIVE (Negative); Specific Gravity Urine UA 1.015 (1.000-1.035); Urobilinogen Urine UA 1.0 E.U./dL (0.2); pH Urine UA 6.0 (4.5-8.0)
[2025-07-24 17:13] LABS: Ur Creatinine Normal (Normal); Ur Specific Gravity Normal (Normal); Urine MDMA Negative (Negative); Urine Methamphetamines Negative (Negative); Urine THC Positive (Negative); Urine Tricyclic Antidepressant Negative (Negative); Urine pH Normal (Normal)
[2025-07-24 17:15] LABS: Culture Indicated Urine Cult Not Indicated
--- NOTE | 2025-07-24 17:27 | PC.NURSE ---
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 a/o x2-3 in ED
--- NOTE | 2025-07-24 20:57 | P.HP_ITS ---
History of Present Illness History of Present Illness Date Patient Seen: 07/24/25 Chief complaint: BLE swelling/AMS t-2 weeks Narrative: Chief complaint: Progressive confusion encephalopathy extensive pressure wounds History of present illness: 07/24: Patient brought in by ambulance from home. Blood sugar 102. Patient according to has had rapid decline of the past 2 weeks with mental status cognition and mobility. Has had bilateral leg swelling. Has not been up and walking very much. Home health nurse was at the facility/home today. She did provide a quick assessment sheet a patient's cognition unable to draw a clock, awake alert oriented to name and date of only. Patient is unable to give a history Findings in the emergency department significant for extensive peritoneal stages 2 and 3 very confused acute kidney injury on BUN creatinine tox screen positive for marijuana Review of systems: Patient incapable of participating due to cognitive limitation Physical exam: Very poorly kempt elderly male but pleasant HEENT unremarkable except poor dentition Heart rate and rhythm regular Lungs clear Abdomen nontender Perineum extensive decubitus stage I 2 and 3 in multiple areas and skin folds patient is dark pigmented which may make erythema difficult to recognize Extremities 3+ lower extremity edema Assessment and plan: Failure to thrive and self-care deficit with progressive encephalopathy suspect early sepsis from sacral wounds * Admit for inpatient care * Wound care * Blood culture * Empiric vancomycin and ceftriaxone for Gram-negative and MRSA coverage of wounds * IV resuscitation DVT prophylaxis: * Subcutaneous heparin Code status: * Full code blue Disposition: * Inpatient care anticipate 3 days of hospitalization and will probably require placement Time based codeine: * 55 minutes were involved in the management of this patient care including [id number] evaluation extensive surveillance of patient's skin over his body for review of records discussion with emergency provider review of objective laboratory and imaging findings [facility] Social History household members: spouse Smoking Status: Never smoker Meds Home Medications and Allergies Allergies Allergy/AdvReac Type Severity Reaction Status Date / Time No Known Drug Allergies Allergy Verified 07/24/25 10:42 Exam Vital Signs (past 8 hours): - 07/24/25 13:00 07/24/25 13:00 07/24/25 13:30 Pulse Rate 76 75 Respiratory Rate Blood Pressure 148/63 H Pulse Oximetry 98 98 Oxygen Delivery Method 07/24/25 13:30 07/24/25 14:00 07/24/25 14:00 Pulse Rate 76 Respiratory Rate Blood Pressure 154/85 H 144/77 H Pulse Oximetry 100 Oxygen Delivery Method 07/24/25 14:57 07/24/25 15:00 07/24/25 15:22 Pulse Rate 75 Respiratory Rate 17 Blood Pressure 137/78 Pulse Oximetry 57 L 98 Oxygen Delivery Method 07/24/25 15:22 07/24/25 15:30 07/24/25 16:00 Pulse Rate 79 76 74 Respiratory Rate 15 14 12 Blood Pressure Pulse Oximetry 99 99 98 Oxygen Delivery Method 07/24/25 16:30 07/24/25 17:00 07/24/25 17:30 Pulse Rate 73 71 72 Respiratory Rate 15 18 35 H Blood Pressure Pulse Oximetry 98 96 90 L Oxygen Delivery Method 07/24/25 18:00 07/24/25 20:22 Pulse Rate 66 74 Respiratory Rate 13 18 Blood Pressure 119/68 Pulse Oximetry 100 97 Oxygen Delivery Method Room Air Oxygen Delivery Method Room Air Objective Labs 07/24/25 11:18 07/24/25 11:18 Labs: Laboratory Results - last 24 hr 07/24/25 07/24/25 07/24/25 11:18 13:09 16:25 WBC 5.4 RBC 3.75 L Hgb 10.4 L Hct 31.5 L MCV 84.0 MCH 27.8 MCHC 33.1 RDW 16.1 H Plt Count 282 Neut % (Auto) 41.6 L Lymph % (Auto) 35.4 [place] % (Auto) 14.9 H Eos % (Auto) 5.4 H Baso % (Auto) 2.7 H Neut # (Auto) 2300 Lymph # (Auto) 1900 [place] # (Auto) 800 Eos # (Auto) 300 Baso # (Auto) 100 PT 11.3 INR 1.0 APTT 32 Sodium 136 L Potassium 4.9 Chloride 104 Carbon Dioxide 24 BUN 20 Creatinine 1.02 Estimated GFR > 60 BUN/Creatinine Ratio 19.6 Glucose 104 H Lactate 2.4 H 1.7 Calcium 9.5 Total Bilirubin 0.4 AST 31 ALT 15 Alkaline Phosphatase 58 Ammonia 9 Total Creatine Kinase 266 H Troponin I < 0.012 Total Protein 7.6 Albumin 4.0 Globulin 3.6 Albumin/Globulin Ratio 1.1 Procalcitonin 0.046 TSH 55.4 H Urine Color Yellow Urine Appearance Clear Urine pH 6.0 Ur Specific [place] 1.015 Urine Protein Negative Urine Glucose (UA) Negative Urine Ketones Negative Urine Occult Blood Negative Urine Nitrate Negative Urine Bilirubin Negative Urine Urobilinogen 1.0 Ur Leukocyte Esterase Negative Urine RBC None seen Urine WBC None seen Ur Squamous Epith Cells 0-1 /hpf Urine Bacteria None seen Ur Culture Indicated? Cult not indicated Vol Urine Centrifuged 10ml (spun) Salicylates < 1.0 U Opiates 300ng/mL cut Negative Ur Oxycodone Screen Negative Urine Methadone Screen Negative Acetaminophen < 10 Ur Barbiturates Screen Negative U Tricyclic Antidepress Negative Ur Phencyclidine Scrn Negative Ur Amphetamines Screen Negative U Methamphetamines Scrn Negative Ur MDMA Scrn (Ecstasy) Negative U Benzodiazepines Scrn Negative Urine Cocaine Screen Negative U Marijuana (THC) Screen Positive H Urine Specific [place] Ethyl Alcohol < 10 Ur Creatinine 07/24/25 16:25 WBC RBC Hgb Hct MCV MCH MCHC RDW Plt Count Neut % (Auto) Lymph % (Auto) [place] % (Auto) Eos % (Auto) Baso % (Auto) Neut # (Auto) Lymph # (Auto) [place] # (Auto) Eos # (Auto) Baso # (Auto) PT INR APTT Sodium Potassium Chloride Carbon Dioxide BUN Creatinine Estimated GFR BUN/Creatinine Ratio Glucose Lactate Calcium Total Bilirubin AST ALT Alkaline Phosphatase Ammonia Total Creatine Kinase Troponin I Total Protein Albumin Globulin Albumin/Globulin Ratio Procalcitonin TSH Urine Color Urine Appearance Urine pH Normal Ur Specific [place] Urine Protein Urine Glucose (UA) Urine Ketones Urine Occult Blood Urine Nitrate Urine Bilirubin Urine Urobilinogen Ur Leukocyte Esterase Urine RBC Urine WBC Ur Squamous Epith Cells Urine Bacteria Ur Culture Indicated? Vol Urine Centrifuged Salicylates U Opiates 300ng/mL cut Ur Oxycodone Screen Urine Methadone Screen Acetaminophen Ur Barbiturates Screen U Tricyclic Antidepress Ur Phencyclidine Scrn Ur Amphetamines Screen U Methamphetamines Scrn Ur MDMA Scrn (Ecstasy) U Benzodiazepines Scrn Urine Cocaine Screen U Marijuana (THC) Screen Urine Specific [place] Normal Ethyl Alcohol Ur Creatinine Normal Assessment & Plan Time-Based Coding :: [TOTAL MINUTES] spent with patient and on the chart (including review of chart, obtaining history, exam, reviewing outside data, placing orders, documenting exam and treatment plan, and counseling patient) on [DATE].
[2025-07-24] MEDS: cefTRIAXone 2,000 MG in SODIUM CHLORIDE 0.9% 100 ML 200 MG IV (21:23)
[2025-07-24] MEDS: SODIUM CHLORIDE 0.9% 1,000 ML 100 ML IV (21:23)
[2025-07-24] MEDS: HEPARIN 5,000 UNIT/ML VIAL 5000 UNIT SUBCUT (21:23)
[2025-07-25] VITALS (22 sets, daily range): BP systolic 104–142; BP diastolic 59–92; PULSE 57–89; RESP 14–20; TEMP 36.1–36.8; O2SAT 82–100; BMI 30.5
[2025-07-25 04:06] LABS: Add Manual Diff / Slide Review NO; Hematocrit 28.6 % (41-53); Hemoglobin 9.7 g/dL (13.5-17.5); Lymphocytes Absolute Auto 1500 /uL (1100-4500); Mean Corpuscular HGB Conc 33.9 % (30-36); Mean Corpuscular Hemoglobin 28.4 PG (26-34); Mean Corpuscular Volume 83.8 fL (80-100); Platelet Count 269 X10^3/uL (150-400)
[2025-07-25 06:37] LABS: Blood Urea Nitrogen 18 mg/dL (9-20); Calcium 9.0 mg/dL (8.4-10.2); Carbon Dioxide 24 mmol/L (22-32); Chloride 107 mmol/L (98-107); Estimated Glomerular Filt Rate > 60 mL/min (>60); Glucose 88 mg/dL (70-99); HEMOLYSIS < 15 (0-50); Potassium 4.4 mmol/L (3.4-5.1); Sodium 135 mmol/L (137-145)
[2025-07-25] MEDS: SODIUM CHLORIDE 0.9% 1,000 ML 100 ML IV (10:32)
[2025-07-25] MEDS: VANCOMYCIN 1,000 MG/200 ML PIGGYBACK 200 MG IV ×2 (10:32→22:42)
[2025-07-25] MEDS: HEPARIN 5,000 UNIT/ML VIAL 5000 UNIT SUBCUT ×2 (10:32→21:49)
--- NOTE | 2025-07-25 11:17 | PT.IPTN ---
Physical Therapy Treatment Note M2 PT-IP Current Condition Start: 07/24/25 16:35 Freq: Status: Active Protocol: Document 07/25/25 10:57 SP (Rec: 07/25/25 11:51 SP [id number]) Physical Therapy Current Condition Current Condition Evaluation Date 07/24/25 Treatment Diagnosis altered mental status; difficulty in walking Onset Date 07/24/25 M3 PT-IP Subjective Start: 07/24/25 16:35 Freq: Status: Active Protocol: Document 07/25/25 10:57 SP (Rec: 07/25/25 11:51 SP [id number]) Subjective Physical Therapy Visit Type Type Treatment Note Visit Start Time 10:57 Visit Stop Time 11:17 Notes in room, observed tx. Number of [employer] PL[employer] SALES HOST/HOSTESS Visits 1 Physical Therapy Visit Comments Patient Comments Pt agreeable to working with PARTY PLAN SALES HOST/HOSTESS. Patient Goals Pt agreeable to going to SNF to progress strength to allow return home and manage 6 stairs. M4 PT-IP Mobility and Gait Start: 07/24/25 16:35 Freq: Status: Active Protocol: Document 07/25/25 10:57 SP (Rec: 07/25/25 11:51 SP [id number]) PT-Bed Mobility Assessment Supine to Sit Supine to Sit Moderate Assistance,1 Person Assistance,Bedrails Scooting Scooting to Edge of Contact Guard Assistance,Minimal Assistance Bed PT-Transfer Assessment Sit to and From Stand Sit to and from Moderate Assistance,Maximum Assistance,1 Person Stand Assistance,Use of Upper Extremities Equipment Transfer Assistive Gait Belt,Front Wheeled Walker Device Orthotic/Prosthetic No Devices or Brace: Transfers Transfer Destination Bedside Commode Transfer Technique pt ambulated with FWW Transfer Ability Level of Assist Contact Guard Assistance,Minimal Assistance,1 Person Assistance,Use of Upper Extremities Comments Mobility Comments Pt pleasant gentleman elevated in bed upon arrival, in room. [employer] SAL[employer] HOST/HOSTESS instructed pt LE exercises: ankle pumps and heel slides for mobility assessment, slow but AROM self. HOB lowered flat, pt challenged sitting up straight as used to, instructed log roll to L and use bed rail then right trunk to sitting heavy BUE self mobility and addition trunk support Mod/Max A x1 to complete sitting upright, CG/Min A scoot to EOB. Vitals sup/sit/stand WNLs, see OT documentation. Pt required Max A x1 to complete STS from EOB with FWW support initially, redirection cues for pushing from bed to support standing, stood for approx 1 min before returned to sitting Mod A for controlled sit. Nursing aquired BSC. Pt STS at EOB Min A x1 with FWW, gait with FWW approx 3 feet to BSC, mod cues for pivot turn and FWW mgt (occ assist needed), back up fully and reach back slow controlled sit, Min A x1. OT took over patient care. [employer] SAL[employer] HOST/HOSTESS discussed with pt and recommending SNF for progression in strength and increased independence during mobility and ability to manage 6 stairs to return home to his RV. Pt and in agreement and good DC recommendation plan. Gait Assessment Gait Gait Assistance Minimum Assistance,1 Person Assist Required: Distance (Feet) 3 Able to Maintain Yes Weight Bearing Status During Gait Assistive Devices Assistive Device Gait Belt,Front Wheeled Walker Orthotic/Prosthetic No Devices or Brace: Gait Deviations General Gait Pattern Decreased Stride Length,Decreased Feet Clearance,Wide Based Gait Factors Limiting Gait Function Factors Limiting Decreased Activity Tolerance,Decreased Strength,Poor Gait Function Balance,Poor Safety Awareness Comments Gait Comments Cues for foot clearance, body positioning inside FWW close to back legs, pivot turn backing up to BSC, keeping FWW in front of him until feels BSC behind knees, reach back and slow descend sit. Stair Climbing Assessment Comments Stair Climbing Unable to assess due to decreased strength and activity Comments tolerance this tx. PT-Balance Assessment Sitting Balance and Reactions Static Sitting Good Balance Ability Dynamic Sitting Fair Balance Ability Standing Balance and Reactions Static Standing Good Balance Ability Dynamic Standing Fair Balance Ability Device Used FWW M5 PT-IP Objective Assessments Start: 07/24/25 16:35 Freq: Status: Active Protocol: Document 07/24/25 15:05 AB (Rec: 07/24/25 16:52 AB [id number]) Orientation Orientation/Cognition Level of Alertness Confusional State Orientation Name,Situation Language Function No Deficits Noted Ability Safety Awareness Decreased Safety Awareness Memory Description Short Term Impaired,Shelter Impaired Gross Range of Motion Lower Extremity ROM Assessment Within Functional Limits Strength Lower Extremity Strength Assessment Bilaterally Impaired Hip 3-/5 Knee 3+/5 Muscle Tone Muscle Tone WNL Yes M6 PT-IP Treatment Start: 07/24/25 16:35 Freq: Status: Active Protocol: Document 07/25/25 10:57 SP (Rec: 07/25/25 11:51 SP [id number]) Physical Therapy Treatment Exercises Exercises Ankle Pumps,Heel Slides Knee ROM Measurement approx 90 deg Education Education Provided Safety M7 PT-IP Assessment and Plan Start: 07/24/25 16:35 Freq: Status: Active Protocol: Document 07/25/25 10:57 SP (Rec: 07/25/25 11:51 SP [id number]) PT Summary Assessment and Plan Potential Rehabilitation Fair Potential Status of Condition Evolving at Evaluation Summary Impairments Pain,ROM,Strength,Balance,Coordination,Sensation,Tone, Cognition,Bed Mobility,Transfers,Gait,Activity Tolerance Progress Towards Progressing Toward Goals,Slow Progress due to Activity Goals Tolerance Assessment Summary pt seen in the ED. pt is a 74 y/o M who presented to the ED due to altered mental status. pt with 2 falls for the last 4 weeks and has been declining in mobility with the last fall ~ 2 weeks ago and pt unable to ambulate since then per spouse. pt improved mod/max A x 1 for bed mobility, max Ax1 initially STS then mod A x1 for transfers and ambulation short distance 3 ft to [facility] [place], mod cues for mobility tasks, due to decreased safety awareness. pt will benefit from SNF rehab to improve overall strength and function. will need to complete 6 step mgt for safe DC home. will continue to assess progress. Goals Bed Mobility Goal Minimal Assistance Transfer Goal Minimal Assistance,Front Wheeled Walker Gait Goal Minimal Assistance,Front Wheel Walker Gait Distance 25 Other Goals improve bed mobility, transfers, ambulation using FWW ~ 100 ft SBA up/down 6 steps B rails SBA Days to Meet Goals 10 Frequency of Treatment Frequency Of Once a Day Treatment Treatment Plan Physical Therapy Bed Mobility Training,Transfer Training,Gait Training, Treatment Plan Therapeutic Exercise,Balance Retraining,Discharge Planning,Hot or Cold Pack,Neuromuscular Re-ed, Coordination Retraining,Manual Therapy Precautions Other Precautions falls Recommendations To Nursing Amount of Assist 1 Person Assist Needed Discharge Recommendations PT Discharge SNF Rehab Recommendations Transportation Needs Wheelchair/Cabulance at Discharge - PT assist 1
--- NOTE | 2025-07-25 11:31 | OT.IP.EVAL ---
Occupational Therapy Inpatient Evaluation/Re-Eval M1 PT/OT-IP Prior Functional Status Start: 07/24/25 16:35 Freq: Status: Active Protocol: Document 07/25/25 11:37 [facility] (Rec: 07/25/25 11:56 [facility] Desktop) Medical Review Prior Functional Status Medical History Yes Reviewed Communication able to make needs known; slow to respond to questions and instructions Mobility and Gait pt stated that he was modified independent with all mobilities and ambulation using a SPC; pt stated that he has not seen a doctor for years spouse stated that pt was modified independent with toileting but has not had a shower for years; stated that pt has not been out of the house for 6 years; able to ambulate inside their RV using a SPC but uses the counters for support when he uses the toilet. pt had 2 falls for the last 4 weeks and last fall was 2 weeks ago and since that fall; pt was not able to ambulate and has been incontinent. Activities of Daily Pt's states prior to falling able to walk to and Living and IADL's from the toilet on his own. Pt has not showered for years. Pt's does all IADL needs. Prior to his falls, pt had been able to care for himself so that his would be able to go on trips to see her family. Pt's well aware that she would not leave him home alone now in his condition. Social History Household Members spouse Living Arrangements RV Number of Floors ( One Floor Floors) Number of Stairs To 6 steps B rails to enter Enter/Railing? 2 steps to the shower level Home Environment Standard Height Toilet,Walk in Shower Home Equipment Four Wheel Walker,Straight Cane,Hand Held Shower M2 OT-IP Current Condition Start: 07/25/25 11:37 Freq: Status: Active Protocol: Document 07/25/25 11:37 [facility] (Rec: 07/25/25 11:56 [facility] Desktop) Occupational Therapy Current Condition Current Condition Evaluation Date 07/25/25 Treatment Diagnosis AMS, decreased activity tolerance. Diagnosis Onset Date 07/24/25 M3 OT- IP Subjective and Pain Start: 07/25/25 11:37 Freq: Status: Active Protocol: Document 07/25/25 11:37 [facility] (Rec: 07/25/25 11:56 [facility] Desktop) OT- Subjective Occupational Therapy Visit Type Type Initial Evaluation Visit Start Time 10:55 Visit Stop Time 11:31 Occupational Therapy Visit Comments Patient Comments Pt wanting to use to BSC. Patient/Caregiver TO get better. Goals OT Pain Assessment Pain When Pain Assessed At Rest Pain Present Pain Present Denied Pain M4 OT- IP ADL's Start: 07/25/25 11:37 Freq: Status: Active Protocol: Document 07/25/25 11:37 [facility] (Rec: 07/25/25 11:56 [facility] Desktop) OT [id number] Comments OT Self-Feeding Not at meal time. Comments OT ADL-Grooming Comments OT Grooming Comments Not performed. OT ADL-Oral Care Comments Oral Care Comments Not performed. OT ADL-Dressing General Eval Lower Body Dressing Maximum Assistance Ability OT ADL-Toileting General Evaluation Toileting Ability Maximum Assistance Areas Needing Manage Clothing,Perform Perineal Hygiene Assistance Comments OT Toileting assist for completeness of hygiene and for clothing Comments needs OT ADL-Bathing Comments OT Bathing Comments Pt has not showered in years. M5 OT- IP IADL's Start: 07/25/25 11:37 Freq: Status: Active Protocol: Document 07/25/25 11:37 [facility] (Rec: 07/25/25 11:56 [facility] Desktop) OT-Instrumental Activities of Daily Living Home Safety Awareness Awareness of Need Decreased Awareness for Assistance at Home Ability to Problem Unable to Problem Solve Solve Emergency Situations Home Safety Comments Pt needing prompts to recall 911, and not able to know what to do incase the toilet were to overflow. Pt will benefit from SLUMS tomorrow. Medication Management Medication Per pt's pt does not take meds. Management Comments Money Management Money Management Caregiver Provides Assistance Meal Preparation Meal Preparation Caregiver Provides Assist Supervisor [employer] Supervisor [employer] Caregiver Provides Assist M6 OT- IP Functional Cognition Start: 07/25/25 11:37 Freq: Status: Active Protocol: Document 07/25/25 11:37 [facility] (Rec: 07/25/25 11:56 [facility] Desktop) Cognitive Factors Limiting Selfcare Function Cognitive Ability Level of Alertness Alert Patient Orientation Name,Age,Birthday,Month,Year,Place,Situation Attention Span Capable of Focused Attention,Capable of Sustained Ability Attention Ability to Follow Able to Follow One Step Commands with Increased Time, Commands Able to Follow One Step Commands with Repetition Memory Description Short Term Impaired Cognitive Comments Cognitive Assessment Pt more alert today per and able to recall her Comments phone number today. Pt needing vc for safety awareness for FWW, hand and feet placement when coming up to stand. Pt is cooperative and motivated to get better. Pt will benefit from SLUMS tomorrow. OT- Vision and Hearing OT- Hearing Assessment OT- Hearing WFL Assessment OT- Vision Assessment Visual Acuity WFL Visual Attentiveness WFL Occular Pursuits WFL Vision Assessment Pt able to read the clock correctly on 2nd attempt. Comments M7 OT- IP Mobility and Balance Start: 07/25/25 11:37 Freq: Status: Active Protocol: Document 07/25/25 11:37 [facility] (Rec: 07/25/25 11:56 [facility] Desktop) OT- Bed Mobility Assessment Supine to Sit Supine to Sit Assist Moderate Assistance Sit to Supine Sit to Supine Assist Moderate Assistance OT-Transfer Assessment Sit to and From Stand Sit to and from Moderate Assistance Stand Transfers Transfer Ability Moderate Assistance Comments Mobility Comments MODA to get his trunk upright an legs back into bed. MODA x1 to stand and vc to keep his feet apart prior to standing. BP supine 112/65, sit 139/90 and standing 141/90. Assist for balance and to guide the FWW as pt is unsteady on his feet. OT- Balance Assessment Sitting Balance and Reactions Static Sitting Good Balance Ability Dynamic Sitting Fair Balance Ability Standing Balance and Reactions Static Standing Poor Balance Ability Dynamic Standing Poor Balance Ability M8 OT- IP Objective Assessments Start: 07/25/25 11:37 Freq: Status: Active Protocol: Document 07/25/25 11:37 [facility] (Rec: 07/25/25 11:56 [facility] Desktop) OT Gross Range of Motion Upper Extremity Range of Motion ROM Impairments decreased at end ROM OT Strength Comments Strength Comments shoulder 4/5 to hands 5/5 M9 OT- IP Assessment and Plan Start: 07/25/25 11:37 Freq: Status: Active Protocol: Document 07/25/25 11:37 [facility] (Rec: 07/25/25 11:56 [facility] Desktop) OT Summary Assessment and Plan Potential Rehabilitation Good Potential Analytic Complexity Moderate at Evaluation Summary OT Impairments Range of Motion,Strength,Balance,Functional Cognition, Functional Mobility,Self-Feeding,Grooming,Dressing, Toileting,Bathing,Toilet Transfers,Shower Transfers, Activity Tolerance Progress Towards Progressing Toward Goals,Slow Progress due to Medical Goals Issues,Slow Progress due to Activity Tolerance,Slow Progress due to Cognition Assessment Summary Pt mod complexity and main barriers are decreased balance, endurance, activity tolerance and now needing MODA for bed mobility and transfers with FWW. Pt also needing assist for ADL needs. Pt will benefit from skilled rehab. To assess SLUMS tomorrow. Goals Self-Feeding Goal Independent Grooming Goal Independent Dressing Goal Independent Toileting Goal Standby Assistance Bathing Goal Minimal Assistance Toilet Transfer Goal Independent Shower Transfer Goal Contact Guard Assistance Days to Meet Goals 15 Frequency of Treatment Other frequency 5x/week Treatment Plan OT Treatment Plan ADL Training,Functional Cognition Training,Functional Mobility,Patient/Family Education,Discharge Planning Other Treatment Standing ADL's at sink. Recommendations and Next Treatment Focus Discharge Recommendations OT Discharge SNF Rehab Recommendations Transportation Needs Wheelchair/Cabulance at Discharge
--- NOTE | 2025-07-25 12:29 | CM.DPC ---
Continued DCP Note OT and PT evaluated patient today and continue to recommend SNF rehab. PT and OT evals sent to Ana at [facility], she will submit for insurance auth today. OT endorses plans for SLUMS eval tomorrow, per spouse and OT patient presented more lucid today. Patient's spouse continues to seek SNF rehab at [facility] or local facility for patient. Plan: follow up with [facility] regarding insurance auth. SARAH SanfordSW
[2025-07-25] MEDS: LEVOTHYROXINE 50 MCG TABLET PO (12:40)
[2025-07-25] MEDS: LIOTHYRONINE 5 MCG TABLET PO (12:40)
--- NOTE | 2025-07-25 15:51 | P.PN_ITS ---
Subjective Subjective Date Patient Seen: 07/25/25 Interval history: Chief complaint: Progressive confusion encephalopathy extensive pressure wounds History of present illness: 07/24: Patient brought in by ambulance from home. Blood sugar 102. Patient according to has had rapid decline of the past 2 weeks with mental status cognition and mobility. Has had bilateral leg swelling. Has not been up and walking very much. Home health nurse was at the facility/home today. She did provide a quick assessment sheet a patient's cognition unable to draw a clock, awake alert oriented to name and date of only. Patient is unable to give a history Findings in the emergency department significant for extensive peritoneal stages 2 and 3 very confused acute kidney injury on BUN creatinine tox screen positive for marijuana 07/25: Patient certainly less confused although is not oriented but can speak coherently and understands Doppler a conversation however during mental status exam patient believes that the year is 2074 and the month is March and the president is Lance Flores Review of systems: No fever or chills overnight No chest pain palpitations No nausea vomiting No focal weakness Physical exam: Very poorly kempt elderly male but pleasant HEENT unremarkable except poor dentition Heart rate and rhythm regular Lungs clear Abdomen nontender Perineum extensive decubitus stage I 2 and 3 in multiple areas and skin folds patient is dark pigmented which may make erythema difficult to recognize Extremities 3+ lower extremity edema Assessment and plan: Failure to thrive and self-care deficit with progressive encephalopathy suspect early sepsis from sacral wounds * Admit for inpatient care * Wound care * Blood culture * Empiric vancomycin and ceftriaxone for Gram-negative and MRSA coverage of wounds can probably deescalate to Cipro and doxycycline at the time of discharge * IV resuscitation DVT prophylaxis: * Subcutaneous heparin Code status: * Full code blue Disposition: * Inpatient care anticipate 3 days of hospitalization and will probably require placement * PTOT evaluation, hopefully patient can become ambulatory Time based codeine: * 35 minutes were involved in the management of this patient care including [id number] evaluation extensive surveillance of patient's skin over his body for review of records discussion with emergency provider review of objective laboratory and imaging findings Exam Vital Signs (past 8 hours): - 07/25/25 08:00 07/25/25 10:45 07/25/25 10:46 Temperature Pulse Rate 69 80 83 Respiratory Rate Blood Pressure Pulse Oximetry 99 82 L 99 Oxygen Delivery Method Oxygen Flow Rate 07/25/25 10:46 07/25/25 11:00 07/25/25 11:05 Temperature Pulse Rate 82 86 Respiratory Rate Blood Pressure 117/86 Pulse Oximetry 98 98 Oxygen Delivery Method Oxygen Flow Rate 07/25/25 11:05 07/25/25 11:07 07/25/25 11:07 Temperature Pulse Rate 82 Respiratory Rate Blood Pressure 104/68 112/65 Pulse Oximetry 98 Oxygen Delivery Method Oxygen Flow Rate 07/25/25 11:08 07/25/25 11:11 07/25/25 11:13 Temperature 98 F Pulse Rate Respiratory Rate 20 Blood Pressure 141/90 H 139/90 Pulse Oximetry 98 98 Oxygen Delivery Method Room Air Oxygen Flow Rate 07/25/25 13:08 Temperature 97.5 F L Pulse Rate 89 Respiratory Rate 16 Blood Pressure 142/92 H Pulse Oximetry 100 Oxygen Delivery Method Oxygen Flow Rate 0 Oxygen Delivery Method Room Air Oxygen Flow Rate 0 Objective Labs 07/25/25 03:50 07/25/25 06:20 Labs: Laboratory Results - last 24 hr 07/24/25 07/24/25 07/25/25 16:25 16:25 03:50 WBC 4.6 RBC 3.42 L Hgb 9.7 L Hct 28.6 L MCV 83.8 MCH 28.4 MCHC 33.9 RDW 16.0 H Plt Count 269 Neut % (Auto) 48.1 L Lymph % (Auto) 31.9 [place] % (Auto) 12.2 Eos % (Auto) 5.8 H Baso % (Auto) 2.0 Neut # (Auto) 2200 Lymph # (Auto) 1500 [place] # (Auto) 600 Eos # (Auto) 300 Baso # (Auto) 100 Sodium Potassium Chloride Carbon Dioxide BUN Creatinine Estimated GFR BUN/Creatinine Ratio Glucose Calcium Urine Color Yellow Urine Appearance Clear Urine pH 6.0 Normal Ur Specific [place] 1.015 Urine Protein Negative Urine Glucose (UA) Negative Urine Ketones Negative Urine Occult Blood Negative Urine Nitrate Negative Urine Bilirubin Negative Urine Urobilinogen 1.0 Ur Leukocyte Esterase Negative Urine RBC None seen Urine WBC None seen Ur Squamous Epith Cells 0-1 /hpf Urine Bacteria None seen Ur Culture Indicated? Cult not indicated Vol Urine Centrifuged 10ml (spun) U Opiates 300ng/mL cut Negative Ur Oxycodone Screen Negative Urine Methadone Screen Negative Ur Barbiturates Screen Negative U Tricyclic Antidepress Negative Ur Phencyclidine Scrn Negative Ur Amphetamines Screen Negative U Methamphetamines Scrn Negative Ur MDMA Scrn (Ecstasy) Negative U Benzodiazepines Scrn Negative Urine Cocaine Screen Negative U Marijuana (THC) Screen Positive H Urine Specific [place] Normal Ur Creatinine Normal 07/25/25 06:20 WBC RBC Hgb Hct MCV MCH MCHC RDW Plt Count Neut % (Auto) Lymph % (Auto) [place] % (Auto) Eos % (Auto) Baso % (Auto) Neut # (Auto) Lymph # (Auto) [place] # (Auto) Eos # (Auto) Baso # (Auto) Sodium 135 L Potassium 4.4 Chloride 107 Carbon Dioxide 24 BUN 18 Creatinine 1.02 Estimated GFR > 60 BUN/Creatinine Ratio 17.6 Glucose 88 Calcium 9.0 Urine Color Urine Appearance Urine pH Ur Specific [place] Urine Protein Urine Glucose (UA) Urine Ketones Urine Occult Blood Urine Nitrate Urine Bilirubin Urine Urobilinogen Ur Leukocyte Esterase Urine RBC Urine WBC Ur Squamous Epith Cells Urine Bacteria Ur Culture Indicated? Vol Urine Centrifuged U Opiates 300ng/mL cut Ur Oxycodone Screen Urine Methadone Screen Ur Barbiturates Screen U Tricyclic Antidepress Ur Phencyclidine Scrn Ur Amphetamines Screen U Methamphetamines Scrn Ur MDMA Scrn (Ecstasy) U Benzodiazepines Scrn Urine Cocaine Screen U Marijuana (THC) Screen Urine Specific [place] Ur Creatinine PFSH Social History household members: spouse Smoking Status: Never smoker Assessment & Plan Time-Based Coding :: [TOTAL MINUTES] spent with patient and on the chart (including review of chart, obtaining history, exam, reviewing outside data, placing orders, documenting exam and treatment plan, and counseling patient) on [DATE]. Quality VTE Deep Vein Thrombosis/Pulmonary Embolism Present on Admission: No
--- NOTE | 2025-07-25 17:46 | PC.NURSE ---
of pt provided pt's typical home thyroid medication (dessicated bovine thyroid). 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 Placed pt label on medication, will send down to pharmacy. Notified MD Beal; no new orders at this time. did order PO levothyroxine and liothyronine while inpatient so patient is receiving replacement therapy. Pt resting comfortably, plan of care continues.
[2025-07-25] MEDS: cefTRIAXone 2,000 MG in SODIUM CHLORIDE 0.9% 100 ML 200 MG IV (21:48)
[2025-07-25] MEDS: SENNOSIDES 8.6 MG TABLET 17.2 MG PO (21:48)
--- NOTE | 2025-07-26 03:00 | PC.NURSE ---
Pt appears confused.Has pulled out his IV's several times- Order from Dr Pappas to leave out for now.
[2025-07-26] MEDS: LEVOTHYROXINE 50 MCG TABLET PO (06:12)
[2025-07-26 06:51] LABS: Add Manual Diff / Slide Review NO; Hematocrit 31.7 % (41-53); Hemoglobin 10.6 g/dL (13.5-17.5); Lymphocytes Absolute Auto 1700 /uL (1100-4500); Mean Corpuscular HGB Conc 33.3 % (30-36); Mean Corpuscular Hemoglobin 27.9 PG (26-34); Mean Corpuscular Volume 83.6 fL (80-100); Platelet Count 284 X10^3/uL (150-400)
[2025-07-26 07:04] LABS: Blood Urea Nitrogen 16 mg/dL (9-20); Calcium 9.4 mg/dL (8.4-10.2); Carbon Dioxide 25 mmol/L (22-32); Chloride 103 mmol/L (98-107); Estimated Glomerular Filt Rate > 60 mL/min (>60); Glucose 77 mg/dL (70-99); HEMOLYSIS < 15 (0-50); Potassium 3.5 mmol/L (3.4-5.1); Sodium 134 mmol/L (137-145)
[2025-07-26 08:00] VITALS: BP 128/78; PULSE 69; RESP 16; TEMP 36.2; O2SAT 99
--- NOTE | 2025-07-26 09:00 | OT.IP.TRT ---
Current Diagnoses Sepsis, unspecified organism (07/24/25) Occupational Therapy Treatment Note M2 OT-IP Current Condition Start: 07/25/25 11:37 Freq: Status: Active Protocol: Document 07/25/25 11:37 [facility] (Rec: 07/25/25 11:56 [facility] Desktop) Occupational Therapy Current Condition Current Condition Evaluation Date 07/25/25 Treatment Diagnosis AMS, decreased activity tolerance. Diagnosis Onset Date 07/24/25 M3 OT- IP Subjective and Pain Start: 07/25/25 11:37 Freq: Status: Active Protocol: Document 07/26/25 09:00 [facility] (Rec: 07/26/25 10:46 [facility] Desktop) OT- Subjective Occupational Therapy Visit Type Type Treatment Note Visit Start Time 09:00 Visit Stop Time 09:45 Occupational Therapy Visit Comments Patient Comments Pt agreed to get up to do SLUMS. Patient/Caregiver To get better. Goals OT Pain Assessment Pain When Pain Assessed During Mobility Pain Present Pain Present Pain Reported Location Back Pain Behaviors Facial Grimacing,Holding Area M4 OT- IP ADL's Start: 07/25/25 11:37 Freq: Status: Active Protocol: Document 07/26/25 09:00 [facility] (Rec: 07/26/25 10:46 [facility] Desktop) OT MBT-Bnbr-Crpkenw Comments OT Self-Feeding Not at meal time. Comments OT ADL-Grooming General Evaluation Grooming Ability Standby Assistance Comments OT Grooming Comments VC to initiate and set-up while seated. OT ADL-Oral Care General Eval Oral Care Ability Standby Assistance Comments Oral Care Comments vc to initiate OT ADL-Dressing General Eval Upper Body Dressing Minimal Assistance Ability Lower Body Dressing Maximum Assistance Ability Areas Needing Socks Assistance Comments OT Dressing Comments FIDENCIO to help change out his gown.MAXA for socks. OT ADL-Toileting Comments OT Toileting Pt condom cath was disconnected when OT came in and Comments nursing aid called in. OT ADL-Bathing Comments OT Bathing Comments Pt will need assist. M5 OT- IP IADL's Start: 07/25/25 11:37 Freq: Status: Active Protocol: Document 07/25/25 11:37 [facility] (Rec: 07/25/25 11:56 [facility] Desktop) OT-Instrumental Activities of Daily Living Home Safety Awareness Awareness of Need Decreased Awareness for Assistance at Home Ability to Problem Unable to Problem Solve Solve Emergency Situations Home Safety Comments Pt needing prompts to recall 911, and not able to know what to do incase the toilet were to overflow. Pt will benefit from SLUMS tomorrow. Medication Management Medication Per pt's pt does not take meds. Management Comments Money Management Money Management Caregiver Provides Assistance Meal Preparation Meal Preparation Caregiver Provides Assist Burlap Roll Coverer Burlap Roll Coverer Caregiver Provides Assist M6 OT- IP Functional Cognition Start: 07/25/25 11:37 Freq: Status: Active Protocol: Document 07/26/25 09:00 [facility] (Rec: 07/26/25 10:46 [facility] Desktop) Cognitive Factors Limiting Selfcare Function Cognitive Ability Level of Alertness Alert,Confusional State Patient Orientation Name,Age,Birthday,Year,Place,Situation Attention Span Capable of Focused Attention,Capable of Sustained Ability Attention Ability to Follow Able to Follow One Step Commands with Increased Time, Commands Able to Follow One Step Commands with Repetition Memory Description Short Term Impaired,Working Impaired Cognitive Tests SLUMS Pt scored 11/30, pt thought it was Tuesday, unable to subtract 100-23, only able to name 1 animal in one minute, not able to recall any on the 5 objects after time passed, not able to recall 4 digit number backwards, pt writing the numbers of the clock from 1- 13 and mainly on the right side, and able to answer 3/4 questions right after paragraph read. Cognitive Comments Cognitive Assessment Pt has difficulty with initiation, word finding, STM, Comments and problem solving. Pt scored 11/30 on the SLUMS which implies dementia. Pt however still able to recall his 's phone number after increased time. Pt having needing increased time to look for numbers on the left for [place] making Part A. Pt's states pt cognition has progressively declined in the past two weeks. OT- Vision and Hearing OT- Hearing Assessment OT- Hearing WFL Assessment OT- Vision Assessment Visual Manley Impaired Vision Assessment Pt seems to have difficulty with lower left visual Comments manley. M7 OT- IP Mobility and Balance Start: 07/25/25 11:37 Freq: Status: Active Protocol: Document 07/26/25 09:00 [facility] (Rec: 07/26/25 10:46 [facility] Desktop) OT- Bed Mobility Assessment Supine to Sit Supine to Sit Assist Moderate Assistance OT-Transfer Assessment Sit to and From Stand Sit to and from Moderate Assistance Stand Transfers Transfer Ability Moderate Assistance Technique Transfer Destination Bed,Chair Transfer Technique Stand Step Pivot Devices Transfer Assistive Gait Belt,Front Wheeled Walker Devices Comments Mobility Comments MODA to assist to get his trunk upright. MIN/MODA to stand to the FWW and vc to push up from surfaces. Pt needing MODA for his balance, and assist to guide and move the FWW as pt has trouble coordinating movement of of the FWW. OT- Balance Assessment Sitting Balance and Reactions Static Sitting Good Balance Ability Dynamic Sitting Fair Balance Ability Standing Balance and Reactions Static Standing Fair Balance Ability Dynamic Standing Poor Balance Ability M8 OT- IP Objective Assessments Start: 07/25/25 11:37 Freq: Status: Active Protocol: Document 07/25/25 11:37 [facility] (Rec: 07/25/25 11:56 [facility] Desktop) OT Gross Range of Motion Upper Extremity Range of Motion ROM Impairments decreased at end ROM OT Strength Comments Strength Comments shoulder 4/5 to hands 5/5 M9 OT- IP Assessment and Plan Start: 07/25/25 11:37 Freq: Status: Active Protocol: Document 07/26/25 09:00 [facility] (Rec: 07/26/25 10:46 [facility] Desktop) OT Summary Assessment and Plan Potential Rehabilitation Good Potential Analytic Complexity Moderate at Evaluation Summary OT Impairments Range of Motion,Strength,Balance,Functional Cognition, Functional Mobility,Self-Feeding,Grooming,Dressing, Toileting,Bathing,Toilet Transfers,Shower Transfers, Activity Tolerance Progress Towards Progressing Toward Goals,Slow Progress due to Medical Goals Issues,Slow Progress due to Activity Tolerance,Slow Progress due to Cognition Assessment Summary Pt scored 11/30 on the SLUMS which implies dementia- pt having difficulty with word finding and initiation. Pt MODA for bed mobility and transfer with FWW. Pt to go to skilled rehab when medically stable. Goals Self-Feeding Goal Independent Grooming Goal Standby Assistance Dressing Goal Standby Assistance Toileting Goal Standby Assistance Bathing Goal Independent Toilet Transfer Goal Standby Assistance Shower Transfer Goal Contact Guard Assistance Days to Meet Goals 15 Frequency of Treatment Other frequency 5x/week Treatment Plan OT Treatment Plan ADL Training,Functional Cognition Training,Functional Mobility,Patient/Family Education,Discharge Planning Other Treatment Standing ADL's at sink. Recommendations and Next Treatment Focus Discharge Recommendations OT Discharge SNF Rehab Recommendations Transportation Needs Wheelchair/Cabulance at Discharge
--- NOTE | 2025-07-26 09:35 | P.PN_ITS ---
Subjective Subjective Date Patient Seen: 07/26/25 Interval history: Chief complaint: Progressive confusion encephalopathy extensive pressure wounds History of present illness: 07/24: Patient brought in by ambulance from home. Blood sugar 102. Patient according to has had rapid decline of the past 2 weeks with mental status cognition and mobility. Has had bilateral leg swelling. Has not been up and walking very much. Home health nurse was at the facility/home today. She did provide a quick assessment sheet a patient's cognition unable to draw a clock, awake alert oriented to name and date of only. Patient is unable to give a history Findings in the emergency department significant for extensive peritoneal stages 2 and 3 very confused acute kidney injury on BUN creatinine tox screen positive for marijuana 07/25: Patient certainly less confused although is not oriented but can speak coherently and understands Doppler a conversation however during mental status exam patient believes that the year is 2074 and the month is March and the president is Lance Flores 07/26: Patient no longer appears encephalopathic but is clearly demented with a cognitive decline. Patient appears to be at baseline but will probably need half-way for improving gait stability and strength and wound care. It is appropriate this time to deescalate deescalate to oral doxycycline and ciprofloxacin for coverage empirically of Gram-negative and MRSA for sacral wounds and follow up with Dr. Barrera wound clinic Review of systems: No fever or chills overnight No chest pain palpitations No nausea vomiting No focal weakness Physical exam: Very poorly kempt elderly male but pleasant HEENT unremarkable except poor dentition Heart rate and rhythm regular Lungs clear Abdomen nontender Perineum extensive decubitus stage I 2 and 3 in multiple areas and skin folds patient is dark pigmented which may make erythema difficult to recognize Extremities 3+ lower extremity edema Assessment and plan: Failure to thrive and self-care deficit with progressive encephalopathy suspect early sepsis from sacral wounds * Admit for inpatient care * Wound care * Blood culture * Empiric vancomycin and ceftriaxone for Gram-negative and MRSA coverage of wounds can probably deescalated to Cipro and doxycycline at the time of discharge * IV resuscitation DVT prophylaxis: * Subcutaneous heparin Code status: * Full code blue Disposition: * At level of care for half-way and discharged from hospital Time based billing: * 35 minutes were involved in the management of this patient care including lila-ua-cade evaluation extensive surveillance of patient's skin over his body for review of records discussion with emergency provider review of objective laboratory and imaging findings Exam Vital Signs (past 8 hours): - 07/26/25 08:00 Temperature 97.2 F L Pulse Rate 69 Respiratory Rate 16 Blood Pressure 128/78 Pulse Oximetry 99 Oxygen Flow Rate 0 Oxygen Delivery Method Room Air Oxygen Flow Rate 0 Objective Labs 07/26/25 06:20 07/26/25 06:20 Labs: Laboratory Results - last 24 hr 07/26/25 06:20 WBC 4.8 RBC 3.79 L Hgb 10.6 L Hct 31.7 L MCV 83.6 MCH 27.9 MCHC 33.3 RDW 16.0 H Plt Count 284 Neut % (Auto) 42.6 L Lymph % (Auto) 35.8 Brooke % (Auto) 12.8 Eos % (Auto) 6.3 H Baso % (Auto) 2.5 H Neut # (Auto) 2000 Lymph # (Auto) 1700 Brooke # (Auto) 600 Eos # (Auto) 300 Baso # (Auto) 100 Sodium 134 L Potassium 3.5 Chloride 103 Carbon Dioxide 25 BUN 16 Creatinine 0.99 Estimated GFR > 60 BUN/Creatinine Ratio 16.2 Glucose 77 Calcium 9.4 PFSH Social History household members: spouse Smoking Status: Never smoker Assessment & Plan Time-Based Coding :: [TOTAL MINUTES] spent with patient and on the chart (including review of chart, obtaining history, exam, reviewing outside data, placing orders, documenting exam and treatment plan, and counseling patient) on [DATE]. Quality VTE Deep Vein Thrombosis/Pulmonary Embolism Present on Admission: No
[2025-07-26] MEDS: LIOTHYRONINE 5 MCG TABLET PO (10:08)
[2025-07-26] MEDS: DOXYCYCLINE HYCLATE 100 MG TABLET PO ×2 (10:09→21:07)
[2025-07-26] MEDS: HEPARIN 5,000 UNIT/ML VIAL 5000 UNIT SUBCUT ×2 (10:09→21:07)
--- NOTE | 2025-07-26 10:50 | DIET.CONS ---
Dietary Consultation Note Admission Date: 07/24/2025 17:51 Assessment: 74 y M admitted for altered mental status and wounds. Dietitian consulted for difficulty caring for self d/t physical disability. Per rounds, pt disoriented and no memory. Plan is to d/c to SNF. EMR reviewed. Pt noted to have rapid decline in past 2 weeks, failure to thrive, and sacral wounds. Ht: 170.18 cm Wt: 88.451 kg BMI: 30.5 UBW: no weight hx, +3 edema noted in hospitalist progress note Last BM: 07/23/25 (07/25/25 06:32) MNA: 10 Larry Score: 13 Diet: 07/24/25 Breakfast General (Regular) Diet Diet Modifications: 07/24/25 Dinner General (Regular) Diet Diet Modifications: Food Texture: Level 7 - Regular Liquid Consistency: Level 0 - Thin Labs: RBC 3.79 X10^6/uL (4.5-5.9) L 07/26/25 06:20 Hgb 10.6 g/dL (13.5-17.5) L 07/26/25 06:20 Hct 31.7 % (41-53) L 07/26/25 06:20 Creatinine 0.99 mg/dL (0.66-1.25) 07/26/25 06:20 Lactate 1.7 mmol/L (0.7-2.1) 07/24/25 13:09 Nutrition Diagnosis: Increased nutrient needs (protein) r/t healing needs aeb wounds Interventions: ONS max 1x/day Jann BID EER: 1800 kcals (MSJx1.2) 95 g protein (1.25 g protein per kg of adjusted IBW) Monitoring/Evaluations: PO intakes, ONS/Jann tolerance Electronically Signed by: Brigette Jerry 07/26/25 10:50 Clinical Dietitian [address] [address]
[2025-07-26] MEDS: ACETAMINOPHEN 325 MG TABLET 650 MG PO (14:27)
--- NOTE | 2025-07-26 15:49 | PT-IP ANOTE ---
checked on pt x 2 and pt refused PT.
[2025-07-26 16:00] VITALS: BP 105/65; PULSE 72; RESP 16; TEMP 36.2
--- NOTE | 2025-07-26 19:08 | PC.NURSE ---
Family of pt (spouse) requests call from [employer] Sat 07/27 re: plan of care and resources for placement for SNF and potential memory care.
[2025-07-26] MEDS: CIPROFLOXACIN 250 MG TABLET 500 MG PO (21:07)
[2025-07-26] MEDS: SENNOSIDES 8.6 MG TABLET 17.2 MG PO (21:07)
[2025-07-26 21:17] VITALS: BP 104/58; PULSE 76; RESP 16; TEMP 36.2; O2SAT 97
[2025-07-27] MEDS: CIPROFLOXACIN 250 MG TABLET 500 MG PO (06:07)
[2025-07-27] MEDS: LEVOTHYROXINE 50 MCG TABLET PO (06:07)
[2025-07-27 06:11] LABS: Add Manual Diff / Slide Review NO; Hematocrit 29.1 % (41-53); Hemoglobin 9.8 g/dL (13.5-17.5); Lymphocytes Absolute Auto 1500 /uL (1100-4500); Mean Corpuscular HGB Conc 33.5 % (30-36); Mean Corpuscular Hemoglobin 27.9 PG (26-34); Mean Corpuscular Volume 83.3 fL (80-100); Platelet Count 262 X10^3/uL (150-400)
[2025-07-27 06:25] LABS: Blood Urea Nitrogen 22 mg/dL (9-20); Calcium 9.4 mg/dL (8.4-10.2); Carbon Dioxide 25 mmol/L (22-32); Chloride 104 mmol/L (98-107); Estimated Glomerular Filt Rate > 60 mL/min (>60); Glucose 89 mg/dL (70-99); HEMOLYSIS < 15 (0-50); Potassium 4.0 mmol/L (3.4-5.1); Sodium 134 mmol/L (137-145)
--- NOTE | 2025-07-27 07:27 | P.PN_ITS ---
Subjective Subjective Date Patient Seen: 07/27/25 Interval history: Chief complaint: Progressive confusion encephalopathy extensive pressure wounds History of present illness: 07/24: Patient brought in by ambulance from home. Blood sugar 102. Patient according to has had rapid decline of the past 2 weeks with mental status cognition and mobility. Has had bilateral leg swelling. Has not been up and walking very much. Home health nurse was at the facility/home today. She did provide a quick assessment sheet a patient's cognition unable to draw a clock, awake alert oriented to name and date of only. Patient is unable to give a history Findings in the emergency department significant for extensive peritoneal stages 2 and 3 very confused acute kidney injury on BUN creatinine tox screen positive for marijuana 07/25: Patient certainly less confused although is not oriented but can speak coherently and understands Doppler a conversation however during mental status exam patient believes that the year is 2074 and the month is March and the president is Lance Flores 07/26: Patient no longer appears encephalopathic but is clearly demented with a cognitive decline. Patient appears to be at baseline but will probably need snf for improving gait stability and strength and wound care. It is appropriate this time to deescalate deescalate to oral doxycycline and ciprofloxacin for coverage empirically of Gram-negative and MRSA for sacral wounds and follow up with Dr. Barrera wound clinic 06/26: Vital signs stable no fevers recorded overnight white count 4.4 Review of systems: No fever or chills overnight No chest pain palpitations No nausea vomiting No focal weakness Physical exam: Very poorly kempt elderly male but pleasant HEENT unremarkable except poor dentition Heart rate and rhythm regular Lungs clear Abdomen nontender Perineum extensive decubitus stage I 2 and 3 in multiple areas and skin folds patient is dark pigmented which may make erythema difficult to recognize see photos from 07/24 and 07/25 under the wound care tab Extremities 3+ lower extremity edema Assessment and plan: Failure to thrive and self-care deficit with progressive encephalopathy suspect early sepsis from sacral wounds * Improved in at SNF level ready for discharge when approved by facility and 3rd alliance party Payer * Wound care * Blood culture * Empiric vancomycin and ceftriaxone for Gram-negative and MRSA coverage of wounds can probably deescalated to Cipro and doxycycline at the time of discharge Toxic encephalopathy * Resolved Moderately severe advanced dementia chronic * Requiring supervised behavior direction for self-care deficits DVT prophylaxis: * Subcutaneous heparin Code status: * Full code blue Disposition: * At level of care for snf and discharged from hospital Time based billing: * 35 minutes were involved in the management of this patient care including fbit-cu-auvd evaluation extensive surveillance of patient's skin over his body for review of records discussion with emergency provider review of objective laboratory and imaging findings Exam Vital Signs (past 8 hours): Oxygen Delivery Method Room Air Oxygen Flow Rate 0 Objective Labs 07/27/25 05:13 07/27/25 05:13 Labs: Laboratory Results - last 24 hr 07/27/25 05:13 WBC 4.4 L RBC 3.50 L Hgb 9.8 L Hct 29.1 L MCV 83.3 MCH 27.9 MCHC 33.5 RDW 16.1 H Plt Count 262 Neut % (Auto) 45.2 L Lymph % (Auto) 33.9 Meagher % (Auto) 13.1 Eos % (Auto) 6.1 H Baso % (Auto) 1.7 Neut # (Auto) 2000 Lymph # (Auto) 1500 Meagher # (Auto) 600 Eos # (Auto) 300 Baso # (Auto) 100 Sodium 134 L Potassium 4.0 Chloride 104 Carbon Dioxide 25 BUN 22 H Creatinine 1.13 Estimated GFR > 60 BUN/Creatinine Ratio 19.5 Glucose 89 Calcium 9.4 PFSH Social History household members: spouse Smoking Status: Never smoker Assessment & Plan Time-Based Coding :: [TOTAL MINUTES] spent with patient and on the chart (including review of chart, obtaining history, exam, reviewing outside data, placing orders, documenting exam and treatment plan, and counseling patient) on [DATE]. Quality VTE Deep Vein Thrombosis/Pulmonary Embolism Present on Admission: No
[2025-07-27 08:00] VITALS: BP 119/71; PULSE 69; RESP 15; TEMP 37; O2SAT 100
[2025-07-27] MEDS: HEPARIN 5,000 UNIT/ML VIAL 5000 UNIT SUBCUT (09:31)
[2025-07-27] MEDS: LIOTHYRONINE 5 MCG TABLET PO (09:32)
[2025-07-27] MEDS: DOXYCYCLINE HYCLATE 100 MG TABLET PO (09:32)
[2025-07-27] MEDS: ACETAMINOPHEN 325 MG TABLET 650 MG PO (09:32)
--- NOTE | 2025-07-27 10:40 | P.DS_ITS ---
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 Blood sugar 102. Patient according to has had rapid decline of the past 2 weeks with mental status cognition and mobility. Has had bilateral leg swelling. Has not been up and walking very much. Home health nurse was at the facility/home today. She did provide a quick assessment sheet a patient's cognition unable to draw a clock, awake alert oriented to name and date of only. Patient has history of hypothyroidism and has been taking a ?desiccated bovine thyroid tissue? supplement Patient is unable to give a history Findings in the emergency department significant for extensive peritoneal stages 2 and 3 very confused acute kidney injury on BUN creatinine tox screen positive for marijuana 07/25: Patient certainly less confused although is not oriented but can speak coherently and understands Doppler a conversation however during mental status exam patient believes that the year is 2074 and the month is March and the president is [place] 07/26: Patient no longer appears encephalopathic but is clearly demented with a cognitive decline. Patient appears to be at baseline but will probably need detention for improving gait stability and strength and wound care. It is appropriate this time to deescalate deescalate to oral doxycycline and ciprofloxacin for coverage empirically of Gram-negative and MRSA for sacral wounds and follow up with Dr. Barrera wound clinic 06/26: Vital signs stable no fevers recorded overnight white count 4.4 patient now is alert and oriented x4 and does complex arithmetic Review of systems: No fever or chills overnight No chest pain palpitations No nausea vomiting No focal weakness Physical exam: Alert cogent and focused HEENT unremarkable except poor dentition Heart rate and rhythm regular Lungs clear Abdomen nontender Perineum extensive decubitus stage I 2 and 3 in multiple areas and skin folds patient is dark pigmented which may make erythema difficult to recognize see photos from 07/24 and 07/25 under the wound care tab Extremities 1 lower extremity edema Assessment and plan: 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 supplement * Unexpectedly dramatic Excellent response to Cytomel (triiodothyronine) and thyroxine with remarkable anglican of cognition and reversal of vegetative symptoms * Continue Cytomel for at least 30 days and perhaps indefinitely. * In myxedema coma the peripheral conversion of T4-T3 may be impaired requiring direct T3 replacement * Recheck TSH in 6 weeks (mid August) and adjust accordingly, however TSH may also be elevated at that time as they pituitary also responds to Cytomel and may increase production of TSH * dosage of thyroid supplementation should be based primarily on clinical response rather than laboratory. * We will also need to follow free T4 and free T3 Failure to thrive and self-care deficit with progressive encephalopathy suspect early sepsis from sacral wounds * Improved in at SNF with expectation to restore back to independence * Wound care: * Mepilex to wounds changed daily * No more than 1 hour in a particular position for offloading wounds * Ambulate patient frequently Toxic encephalopathy * Resolved Moderately severe advanced dementia chronic * Requiring supervised behavior direction for self-care deficits DVT prophylaxis: * Subcutaneous heparin Code status: * Full code blue Disposition: * At level of care for detention and discharged from hospital Time based billing: * 35 minutes were involved in the management of this patient care including [id number] evaluation extensive surveillance of patient's skin over his body for review of records discussion with emergency provider review of objective laboratory and imaging findings Discharge Providers Provider Date of admission: 07/24/25 17:51 Discharge Date: 07/27/25 Consults: 07/24/25 12:35 Consult to MARKET RESEARCHER - Apiculture Teacher Stat Comment: Apiculture Teacher Consult needed for:: Unable to care for self Consult to Physical Therapy Evaluate & Treat Comment: Physician Instructions: Evaluate and Treat 07/25/25 08:57 Consult to Occupational Therapy Evaluate & Treat Comment: Physician Instructions: Evaluate and treat Consult to Physical Therapy Evaluate & Treat Comment: Physician Instructions: Evaluate and Treat 07/25/25 13:29 Consult to Dietitian, Adult Routine Comment: Reason For Exam: Difficulty caring for self d/t physical disability 07/25/25 19:31 Consult to Pharmacy Routine Comment: Home meds 07/26/25 16:41 Consult to Pharmacy Routine Comment: AMS Discharge provider: Gian Beal MD Exam Vital Signs (past 8 hours): - 07/27/25 08:00 Temperature 98.6 F Pulse Rate 69 Respiratory Rate 15 Blood Pressure 119/71 Pulse Oximetry 100 Oxygen Delivery Method Room Air Oxygen Flow Rate 0 Objective Labs 07/27/25 05:13 07/27/25 05:13 Labs: Laboratory Results - last 24 hr 07/27/25 05:13 WBC 4.4 L RBC 3.50 L Hgb 9.8 L Hct 29.1 L MCV 83.3 MCH 27.9 MCHC 33.5 RDW 16.1 H Plt Count 262 Neut % (Auto) 45.2 L Lymph % (Auto) 33.9 [place] % (Auto) 13.1 Eos % (Auto) 6.1 H Baso % (Auto) 1.7 Neut # (Auto) 2000 Lymph # (Auto) 1500 [place] # (Auto) 600 Eos # (Auto) 300 Baso # (Auto) 100 Sodium 134 L Potassium 4.0 Chloride 104 Carbon Dioxide 25 BUN 22 H Creatinine 1.13 Estimated GFR > 60 BUN/Creatinine Ratio 19.5 Glucose 89 Calcium 9.4 PFSH Social History household members: spouse Smoking Status: Never smoker Discharge Plan Discharge Plan Patient Disposition: SNF Discharge orders & Medications Prescriptions: New sennosides [senna] 8.6 mg Tablet 17.2 mg PO BEDTIME Qty: 30 0RF ciprofloxacin HCl 250 mg Tablet 500 mg PO 0700,2100 Qty: 20 0RF liothyronine [Cytomel] 5 mcg Tablet 5 mcg PO DAILY Qty: 10 0RF levothyroxine [Synthroid] 50 mcg Tablet 50 mcg PO DAILY@0600 Qty: 90 0RF doxycycline hyclate 100 mg Tablet 100 mg PO BID Qty: 20 0RF Follow up/Referrals: Brady Barrera MD [Physician, Wound Care] - 1 Week Diet/Activity/Treatments Diet: Diet as Tolerated Visit Report/Discharge Packet Stand Alone Forms: Patient Portal/API Quality VTE Deep Vein Thrombosis/Pulmonary Embolism Present on Admission: No
--- NOTE | 2025-07-27 11:30 | CM.DPNOTE ---
DCP note GRAB JACK WORKER reviewed EMR per Ritika at , can accept today at 1130. per provider cleared to [facility] today. MS improved significantly with right thyroid meds. GRAB JACK WORKER updated RN/CHILD LIFE ASSISTANT. gave RN report number. GRAB JACK WORKER met with pt and spouse in room. updated on plan. remain in agreement. answered questions to the best of my ability. GRAB JACK WORKER emailed Ritika at dc sum/meds/PASRR. placed meds/PASRR in chart. P: dc today to at 1130. no further CM needs. will continue to follow as needed LAVELLE Acosta
--- NOTE | 2025-07-27 11:55 | PC.NURSE ---
Provided [facility] transport team with patient packet, including wound care instructions. VSWNL. No PIV access, no tele. All belongings with patient and spouse. Pt meds retrived from pharmacy and given to spouse. No belongings in drawer or safe. Pt escorted via WC by [facility] transport team for transport to [facility]; spouse to follow.
== END 2025-07-27 11:35 | DRG 871 ==
LOC: ED 17:06 → AC 17:54
PROVIDERS: Admitting Provider Internal Medicine; Emergency Provider Emergency Medicine; Referring Provider Emergency Medicine; Visit Provider Internal Medicine
DX: A41.9 Sepsis, unspecified organism (principal); E03.5 Myxedema coma; G92.9 Unspecified toxic encephalopathy; R62.7 Adult failure to thrive; L89.159 Pressure ulcer of sacral region, unspecified stage; E03.9 Hypothyroidism, unspecified; F03.C0 Unspecified dementia, severe, without behavioral disturbance, psychotic disturbance, mood disturbance, and anxiety; Z68.30 Body mass index [BMI] 30.0-30.9, adult
CPT/HCPCS: 36415; 70450; 70496; 70498; 70551; 71045; 80048; 80053; 80305; 80320; 80329; 81001; 82140; 82550; 83605; 84145; 84443; 84484; 85025; 85610; 85730; 93005; 93010; 93970; 96361; 96365; 96366; 96367; 96368; 97129; 97162; 97166; 97530; 97535; 99284; G0480; J0696; J1644; J3375; J7030; J7050; Q9967

== ENCOUNTER → 2025-07-31 14:22 | Outpatient (CLI) | payer MEDICARE, SELFPAY ==
[2025-07-25 06:32] VITALS: BMI 30.5
[2025-07-31 14:58] LABS: Add Manual Diff / Slide Review NO; Hematocrit 31.7 % (41-53); Hemoglobin 10.4 g/dL (13.5-17.5); Lymphocytes Absolute Auto 1500 /uL (1100-4500); Mean Corpuscular HGB Conc 33.0 % (30-36); Mean Corpuscular Hemoglobin 27.9 PG (26-34); Mean Corpuscular Volume 84.7 fL (80-100); Platelet Count 280 X10^3/uL (150-400)
[2025-07-31 15:52] LABS: Free T3, Triiodothyronine Free 2.09 pg/mL (2.77-5.27); Free T4, Direct Thyroxine 0.32 ng/dL (0.78-2.19)
[2025-07-31 16:05] LABS: Thyroid Stimulating Hormone 57.0 uIU/mL (0.47-4.68)
== END ==
PROVIDERS: PCP Family Medicine; Referring Provider Family Medicine; Visit Provider Family Medicine
DX: D64.9 Anemia, unspecified (principal); E03.9 Hypothyroidism, unspecified; Z86.39 Personal history of other endocrine, nutritional and metabolic disease
CPT/HCPCS: 36415; 84439; 84443; 84481; 85025